=== PATIENT | female | born 1945 | race African-American/Black ===

== ENCOUNTER → 2016-08-03 08:20 | Outpatient (CLI) | payer BC ==
[2015-11-19 09:36] VITALS: BMI 24.2
[~2016-08-03 08:20] MED LIST: COZAAR25 MG PO
== END | disposition home or self-care (01) ==
LOC: D.RAD 08:20
DX: K50.90 Crohn's disease, unspecified, without complications (principal)

== ENCOUNTER → 2016-08-25 08:38 | Outpatient (CLI) | payer BC ==
[2015-11-19 09:36] VITALS: BMI 24.2
== END | disposition home or self-care (01) ==
LOC: D.CT 08-18 08:00
DX: K50.90 Crohn's disease, unspecified, without complications (principal)

== ENCOUNTER 2016-09-12 08:30 | Emergency (ER) | payer BC, MEDICARE ==
[2015-11-19 09:36] VITALS: BMI 24.2
[2016-09-12 09:18] LABS: HEMATOCRIT 44.7 % (36.0-48.0); MCH 32.7 pg (26.0-34.0); MCHC 33.6 g/dL (31.0-37.0); MCV 97.4 fL (80.0-100.0); MEAN PLATELET VOLUME 9.4 fL (7.4-10.4); PLATELET COUNT 267 10x3/uL (130-400); RBC 4.59 10x6/uL (4.00-5.40); WBC 30.3 10x3/uL (4.8-10.8)
[2016-09-12 09:51] LABS: BASOPHILS 1 % (0.0-2.0); LYMPHOCYTES 9 % (15-50); MONOCYTES 8 % (2-11); NEUTROPHILS 80 % (40-80); PLATELET ESTIMATE NORMAL
[2016-09-12 12:22] LABS: ALBUMIN 3.3 g/dL (3.4-5.0); ANION GAP 17.5 mmol/L (8-16); BILIRUBIN - TOTAL 0.64 mg/dL (0.2-1.3); CALCIUM 8.5 mg/dL (8.5-10.1); CARBON DIOXIDE 23.7 mmol/L (21.0-32.0); CREATININE - SERUM 1.1 mg/dL (0.6-1.3); POTASSIUM - SERUM 4.2 mmol/L (3.5-5.1); PROTEIN - SERUM 6.9 g/dL (6.4-8.2)
[2016-09-12 12:44] LABS: APPEARANCE CLEAR (CLEAR); COLOR YELLOW (YELLOW); LEUKOCYTE ESTERASE 1+ (NEGATIVE); NITRITE NEGATIVE (NEGATIVE); PROTEIN TRACE mg/dL (NEGATIVE)
[2016-09-12 12:45] LABS: BACTERIA FEW /hpf (NONE SEEN); BILIRUBIN NEGATIVE (NEGATIVE); EPITHELIAL CELLS 0-5 /hpf (0-5); GLUCOSE NEGATIVE (NEGATIVE); KETONE NEGATIVE (NEGATIVE); MUCUS <1+ /lpf (NONE SEEN); RED CELLS - URINE OCC /hpf (0-5); UROBILINOGEN NORMAL (NORMAL)
== END 2016-09-12 14:08 | disposition home or self-care (01) ==
LOC: D.ER 08:30
PROVIDERS: Emergency Medicine
DX: R10.9 Unspecified abdominal pain (principal); R11.10 Vomiting, unspecified; R19.7 Diarrhea, unspecified; K50.90 Crohn's disease, unspecified, without complications

== ENCOUNTER 2016-11-06 19:10 | Emergency (ER) | payer BC, MEDICARE ==
[2015-11-19 09:36] VITALS: BMI 24.2
[2016-11-06 20:16] LABS: BASOPHILS 0.3 % (0-2); EOSINOPHILS 0.4 % (0-7); HEMATOCRIT 40.4 % (36.0-48.0); HEMOGLOBIN 13.8 g/dL (12-16); IMMATURE GRANULOCYTES 0.3 % (0-5); LYMPHOCYTES 26.9 % (15-50); MCH 32.5 pg (26.0-34.0); MCHC 34.2 g/dL (31.0-37.0); MCV 95.3 fL (80.0-100.0); MONOCYTES 6.8 % (2-11); NEUTROPHILS 65.3 % (40-80); RBC 4.24 10x6/uL (4.00-5.40); RDW 12.6 % (11.5-14.5); WBC 11.5 10x3/uL (4.8-10.8)
[2016-11-06 20:17] LABS: PLATELET COUNT 339 10x3/uL (130-400)
[2016-11-06 20:29] LABS: ALBUMIN 3.3 g/dL (3.4-5.0); ANION GAP 16.1 mmol/L (8-16); BILIRUBIN - TOTAL 0.2 mg/dL (0.2-1.3); CALCIUM 9.2 mg/dL (8.5-10.1); CARBON DIOXIDE 22.5 mmol/L (21.0-32.0); CREATININE - SERUM 1.7 mg/dL (0.6-1.3); PROTEIN - SERUM 7.7 g/dL (6.4-8.2)
[2016-11-06 20:30] LABS: POTASSIUM - SERUM 2.6 mmol/L (3.5-5.1)
== END 2016-11-06 23:50 | disposition home or self-care (01) ==
LOC: D.ER 19:10
PROVIDERS: Family Medicine
DX: R10.31 Right lower quadrant pain (principal); T78.3XXA Angioneurotic edema, initial encounter; K50.90 Crohn's disease, unspecified, without complications; E87.6 Hypokalemia

== ENCOUNTER 2016-11-17 08:04 | Inpatient (IN) | payer MEDICARE, BC ==
[2016-11-16 15:08] LABS: HEMATOCRIT 40.1 % (36.0-48.0); HEMOGLOBIN 13.7 g/dL (12-16); MCH 32.2 pg (26.0-34.0); MCHC 34.2 g/dL (31.0-37.0); MCV 94.4 fL (80.0-100.0); RBC 4.25 10x6/uL (4.00-5.40); RDW 12.7 % (11.5-14.5); WBC 10.6 10x3/uL (4.8-10.8)
[2016-11-16 15:26] LABS: APTT 26.1 SECONDS (22.8-39.4); INR 1.05 (0.85-1.17); PROTIME 13.5 SECONDS (11.6-15.0)
[2016-11-16 15:36] LABS: ALBUMIN 3.4 g/dL (3.4-5.0); ANION GAP 11.5 mmol/L (8-16); BILIRUBIN - TOTAL 0.36 mg/dL (0.2-1.3); CALCIUM 9.2 mg/dL (8.5-10.1); CARBON DIOXIDE 26.4 mmol/L (21.0-32.0); CREATININE - SERUM 1.4 mg/dL (0.6-1.3); PROTEIN - SERUM 7.5 g/dL (6.4-8.2)
[2016-11-16 15:51] LABS: POTASSIUM - SERUM 2.9 mmol/L (3.5-5.1)
--- NOTE | 2016-11-16 15:54 | NUR ---
1550: PRE-OP LAB CRITICAL VALUE K+2.9 RESULT PHONED TO [facility] AT DR. BOOGIE'S OFFICE.
[~2016-11-17] VITALS: Ht 167.6 cm; Wt 70.3 kg
[2016-11-17] VITALS (12 sets, daily range): BP systolic 80–148; BP diastolic 50–76; BMI 25.2; BMI 25.0
--- NOTE | 2016-11-17 12:27 | NUR ---
PORT FINISHED, EXP LAP STARTS NOW
--- NOTE | 2016-11-17 12:34 | NUR ---
GARY GARDNER, OVI FLORES W.WALKER AT 1233
--- NOTE | 2016-11-17 16:43 | NUR ---
PT BP SLOWLY DROPING PER FREQ VS. DR BOOGIE CALLED. URINE OUTPUT APPROX. 100CC PER MACIAS. NORMAL SALINE BOLUS 1 LITER STARTED. FAMILY AT BEDSIDE AND AWARE.
--- NOTE | 2016-11-17 17:54 | NUR ---
NS BOLUS COMPLETED. BP 120/65. AROUSES EASILY. MILD COMPLAINTS OF ABD DISCOMFORT BUT DRIFTS BACK TO SLEEP WHEN DONE TALKING. MACIAS OUTPUT 200CC OUT. FAMILY AT BEDSIDE. CALL LIGHT IN REACH. WILL CONTINUE TO MONITOR FOR PAIN AND BP
[2016-11-18] VITALS (7 sets, daily range): BP systolic 127–157; BP diastolic 58–69; Ht 167.6 cm; Wt 70.3 kg
--- NOTE | 2016-11-18 03:05 | NUR ---
RESTING QUIETLY. NO DISTRESS NOTED. CL IN REACH
--- NOTE | 2016-11-18 04:17 | NUR ---
EYES CLOSED RESPIRATIONS WITH EASE AND UNLABORED.
--- NOTE | 2016-11-18 05:53 | NUR ---
NO CHANGE IN ASSESSMENT. CL IN REACH
[2016-11-18 06:34] LABS: HEMATOCRIT 29.6 % (36.0-48.0); MCH 32.3 pg (26.0-34.0); MCHC 33.8 g/dL (31.0-37.0); MCV 95.5 fL (80.0-100.0); MEAN PLATELET VOLUME 9.1 fL (7.4-10.4); PLATELET COUNT 232 10x3/uL (130-400); RDW 12.9 % (11.5-14.5); WBC 26.7 10x3/uL (4.8-10.8)
[2016-11-18 06:41] LABS: ANION GAP 14.1 mmol/L (8-16); CALCIUM 8.1 mg/dL (8.5-10.1); CARBON DIOXIDE 23.3 mmol/L (21.0-32.0); CREATININE - SERUM 1.4 mg/dL (0.6-1.3); MAGNESIUM - SERUM 1.4 mg/dL (1.8-2.4)
[2016-11-18 06:42] LABS: POTASSIUM - SERUM 4.4 mmol/L (3.5-5.1)
--- NOTE | 2016-11-18 07:20 | NUR ---
REPORT RECEIVED FROM SPARKER AND PATCHER NURSE. CALL LIGHT IN REACH.
[2016-11-18 07:22] LABS: LYMPHOCYTES 10 % (15-50); MONOCYTES 1 % (2-11); NEUTROPHILS 77 % (40-80); PLATELET ESTIMATE NORMAL
--- NOTE | 2016-11-18 08:31 | NUR ---
ASSESSMENT COMPLETED. NGT TO SUCTION. C/O PAIN OF 6. INSTRUCTED PATIENT TO USE SENIOR VICE PRESIDENT & GENERAL COUNSEL FOR PAIN CONTROL. VERBALIZED UNDERSTANDING. CALL LIGHT IN REACH. WILL CONTINUE WITH PLAN OF CARE.
--- NOTE | 2016-11-18 08:44 | OP ---
PATIENT NAME: DUNG CARVAAJL MEDICAL RECORD: [id number] :43 LOCATION:D.MS [id number] ADMISSION DATE:11/17/16 SURGEON: WOODROW BOOGIE MD DATE OF OPERATION: 11/17/2016 SURGEON: Woodrow Boogie MD PREOPERATIVE DIAGNOSES: 1. Crohn disease with stricture. 2. Stricture of ileocolonic anastomosis. 3. Peripheral IV access insufficiency. PROCEDURES PERFORMED: 1. Left subclavian PowerPort. 2. Immediate interpretation of fluoroscopy. 3. Exploratory laparotomy. 4. Resection of ileocolonic anastomosis. ANESTHESIA: General. COMPLICATIONS: None. SPECIMENS: Ileocolectomy. Case was clean contaminated. OPERATIVE COURSE: After consent was obtained, the patient was taken to the operating room and placed in the supine position on the operating table. Next, general anesthesia was given via endotracheal intubation. Thereafter, a timeout was performed to confirm the correct patient and procedure. The patient's left chest and neck were prepped and draped in typical sterile fashion. A 30 cc of local anesthetic were injected in the left chest wall. The left subclavian vein was cannulated on the first pass. Under fluoroscopy, a guidewire was advanced to the atriocaval junction. The needle was removed. Next, the skin incisions made for the port. Dissection continued to the level of the pectoralis muscle fascia using electrocautery. A pocket was created using a combination of blunt dissection and electrocautery. Next, the tunneling device was used to connect the catheter from the skin incision to the needle stick site. Under fluoroscopy, the dilator and breakaway sheath were passed over the wire. The wire and dilator were removed. With fluoroscopy, the catheter was advanced through the breakaway sheath and advanced the atriocaval junction. At this time, the breakaway sheath was removed. The port was accessed. Blood aspirated. It was then flushed with 5000 units of heparin mixed with 30 mL of saline. The catheter was secured to the chest wall using 2-0 interrupted Prolene suture. The wound was irrigated and suctioned. Subcutaneous tissue was closed with 3-0 Vicryl sutures. Skin was closed with 4-0 Stratafix, Mastisol and Steri-Strips. The port was accessed. Blood was aspirated and then the port was flushed. Sterile Tegaderm dressing was applied. At this time, the drapes were removed. The abdomen was then prepped and draped in typical sterile fashion. Previous midline abdominal scar was excised using a 15 blade scalpel. Dissection continued to the level of the fascia using electrocautery. The fascia was grasped with Ramy clamps times 2. It was opened with Metzenbaum scissors. Once there is a direct to view the abdomen, the remaining portion of the fascia was opened using electrocautery. There were minimal adhesions in the abdomen. Some adhesions were taken down in the right upper quadrant. The OPERATIVE REPORT [id number] DUNG CARVAJAL A ileocolonic anastomosis was identified. There was gross palpable Crohn's disease at the terminal portion of the small bowel at the ileocolonic anastomosis. At this time, the distal 10 cm of small bowel were resected. Mesenteric window was created using electrocautery. The mesentery was taken with the Harmonic scalpel. A mesenteric window was then created at the colon portion of the colonic anastomosis. Using a NAM stapler, the small bowel was transected. Second firing stapler was used to transect the colon at the ileocolonic anastomosis and the specimen was sent for permanent pathology. Next, a functional [id number] anastomosis was created. The antimesenteric borders of both proximal colon and terminal ileum were aligned using 3-0 Vicryl suture. Enterotomies were made using electrocautery. Single firing of the 75-mm linear NAM stapler was used to create a common enterotomy. A second firing stapler was then used to close the common enterotomy. The staple line was imbricated using a 3-0 Stratafix suture. The anastomosis was tested for patency, which was showed good patency. At this time, the abdomen was irrigated with approximately 3 liters of normal saline and suctioned. The small bowel was run from the ligament of Treitz to the ileocolonic anastomosis. Colon was run from the mid transverse colon at the anastomosis to the rectum. At this time, the fascia was closed with a #1 looped PDS. Skin was closed with michael. At the end of the case, all needle and instrument counts were correct. No complications occurred. The patient was extubated and transferred to the PACU in stable condition. TRANSINT:[id number] Voice Confirmation ID: [id number] DOCUMENT ID: [id number] WOODROW BOOGIE MD at 0844 CC: [id number] DICTATION DATE: 11/17/16 1346 MASSAGE OPERATOR: 11/17/16 2347 ADM IN [facility] [address] [id number]
--- NOTE | 2016-11-18 10:31 | NUR ---
PATIENT RESTING QUIETLY WITH HER EYES CLOSED. RESPIRATIONS ARE EVEN AND UNLABORED. FAMILY AT THE PATIENT'S BEDSIDE. TURNING MACHINE OPERATOR DILAUDID IN USE FOR PAIN CONTROL. LR INFUSING AT 100 ML/HR. LEFT INFUSAPORT PATENT WITH DRESSING C/D/I. NG TUBE NOTED TO PATIENT'S LEFT NARE. NG TUBE CONNECTED TO LIS. DARK BROWN DRAINAGE NOTED IN SUCTION CANISTER. CALL LIGHT IN PATIENT'S REACH. WILL MONITOR PATIENT.
--- NOTE | 2016-11-18 11:15 | NUR ---
MEDS ADMINISTERED PER DR. BOOGIE'S ORDERS. SCDs APPLIED TO BLE. MACIAS CATH REMOVED WITH TIP INTACT. [place] HAT PLACED IN BR FOR MEASUREMENT OF URINE. VISITOR AT BEDSIDE. CALL LIGHT IN REACH.
--- NOTE | 2016-11-18 11:31 | NUR ---
BOLUS IS COMPLETED. LR INFUSING AT THIS TIME.
--- NOTE | 2016-11-18 12:14 | NUR ---
IN CHAIR AT THIS TIME PER PHYISCAL THERAPY. NGT TO SUCTION PER ORDER.
--- NOTE | 2016-11-18 14:03 | NUR ---
BACK IN BED AT THIS TIME. STATES THAT PAIN IS "ABOUT THE SAME". ASKED PATIENT IF SHE WOULD LIKE A BOLUS AFTER EXPLAINING WHAT IT WAS BUT SHE STATES "NOT RIGHT NOW".
--- NOTE | 2016-11-18 14:06 | NUR ---
Patient Name: DUNG CARVAJAL Admission Status: Elective Accout number: [id number] Admission Date: 11-17-2016 : 1943 Admission Diagnosis: Attending: BRENDA Current LOS: 1 Anticipated DC Date: 11-23-2016 Planned Disposition: Home Primary Insurance: [employer] [facility] Discharge Planning Comments: CM MET WITH PATIENT REGARDING D/C NEEDS AND PLANS. PATIENT LIVES WITH HER FAMILY AND HER DAUGHTER WILL DRIVE HER HOME AT DISCHARGE. PATIENT STATED THERE ARE NO STEPS OR STAIRS AT HER HOME. PATIENT STATED SHE IS INDEPENDENT WITH HER CARE AND HAS A BUILT IN SHOWER AT HOME. PATIENTS PCP IS DR. STOCKTON AND PHARMACY IS [facility]. PATIENT DOES NOT WANT HOME HEALTH. CM WILL CONTINUE TO FOLLOW PATIENT WITH D/C NEEDS AND PLANS. PCP DR. MAHIN CORNEJO [facility] [phone] MABLE (DAUGHTER) [phone] Boiler Maker: Rosanne Mackey Is the patient Alert and Oriented? Yes 0 * How many steps to enter\exit or inside your home? 0 0 * PCP DR. STOCKTON 0 * Pharmacy [facility] 0 * Preadmission Environment Home with Family 0 * ADLs Independent 0 * Equipment None 0 * List name and contact numbers for known caregivers / representatives who currently or will assist patient after discharge: MABLE (DAUGHTER) [phone] 0 * Community resources currently utilized None 0 * Additional services required to return to the preadmission environment? Yes 0 * Can the patient safely return to the preadmission environment? Yes 0 * Has this patient been hospitalized within the prior 30 days at any hospital? No 0 Grand Total: 0
--- NOTE | 2016-11-18 16:07 | NUR ---
IV ABX PER ORDER. VIT A PER TUBE. DAUGHTER IN ROOM. CALL LIGHT IN REACH.
--- NOTE | 2016-11-18 18:15 | NUR ---
NO CHANGES IN INITIAL ASSESSMENT. CALL LIGHT IN REACH. SCDs TO BLE. WILL CONTINUE WITH PLAN OF CARE.
--- NOTE | 2016-11-18 19:36 | NUR ---
ASSISTED TO BSC TO SEE IF PATIENT CAN VOID. SHE WAS UNABLE BUT WANTED TO CONTINUE TO SIT ON BSC AND TRY FOR ABOUT 30 MINUTES. LEFT WATER RUNNING TO ASSIST HER. WE CHECKED ON HER FREQUENTLY WHILE SITTING ON COMMODE. SHE FINALLY STATED THAT SHE WAS TIRED OF TRYING. ASSISTED BACK TO BED WITH ASSIST X2. PAGED DR. ARREOLA FOR FURTHER ORDERS. REPORT GIVEN TO SEASONAL GREENERY BUNDLER NURSE SO SHE CAN SPEAK WITH HIM WHEN HE CALLS BACK.
--- NOTE | 2016-11-18 22:44 | NUR ---
AWAKE WIHT NO COMPLAINTS VOICED. NG TO LEFT NARE INTACT TO LOW SUCTION.. IV INFUSING TO LEFT FOREARM WITHOUT REDNESS OR EDEMA NOTED. CL IN REACH.
[2016-11-19] VITALS: BP 134/56
--- NOTE | 2016-11-19 01:04 | NUR ---
PT RESTING QUIETLY, EYES CLOSED. APPEAR TO BE SLEEPING. RESP EVEN, UNLABORED. NO DISTRESS NOTED. CONTINUE UNDERWRITING SERVICE REPRESENTATIVE'S PLAN OF CARE.
--- NOTE | 2016-11-19 01:22 | NUR ---
RESTING WITH EYES CLOSED, NO DISTRESS NOTED, SR'S UP, BED LOW, CL IN REACH
--- NOTE | 2016-11-19 03:30 | NUR ---
UNABLE TO VOID. BLADDER SCAN SHOWS [phone] CC. IN AND OUT CATH DONE WITH 800 CC YENNI URINE RETURNED. .
[2016-11-19 04:00] VITALS: BP 138/58
[2016-11-19 06:32] LABS: BASOPHILS 0.1 % (0-2); EOSINOPHILS 0 % (0-7); HEMATOCRIT 24.9 % (36.0-48.0); HEMOGLOBIN 8.3 g/dL (12-16); IMMATURE GRANULOCYTES 0.2 % (0-5); LYMPHOCYTES 8.8 % (15-50); MCH 32.4 pg (26.0-34.0); MCHC 33.3 g/dL (31.0-37.0); MCV 97.3 fL (80.0-100.0); MEAN PLATELET VOLUME 9.6 fL (7.4-10.4); MONOCYTES 7.6 % (2-11); NEUTROPHILS 83.3 % (40-80); PLATELET COUNT 200 10x3/uL (130-400); RBC 2.56 10x6/uL (4.00-5.40); RDW 13.3 % (11.5-14.5); WBC 20.5 10x3/uL (4.8-10.8)
[2016-11-19 07:29] LABS: ANION GAP 14.3 mmol/L (8-16); CALCIUM 8.4 mg/dL (8.5-10.1); CARBON DIOXIDE 22.8 mmol/L (21.0-32.0); CREATININE - SERUM 1.2 mg/dL (0.6-1.3); MAGNESIUM - SERUM 1.7 mg/dL (1.8-2.4); POTASSIUM - SERUM 4.1 mmol/L (3.5-5.1)
[2016-11-19 08:09] VITALS: BP 155/53
[2016-11-19 12:38] VITALS: BP 148/66
[2016-11-19 15:32] VITALS: BP 150/63
--- NOTE | 2016-11-19 18:45 | NUR ---
PT SITTING UP IN BED WITH NO VISABLE SIGNS OF PAIN OR DISCOMFORT. BED IN LOW POSITION AND CALL LIGHT WITHIN REACH. WILL CONTINUE TO MONITOR.
[2016-11-20] VITALS: BP 140/58
[2016-11-20 04:00] VITALS: BP 130/50
[2016-11-20 06:53] LABS: ANION GAP 11.6 mmol/L (8-16); CALCIUM 8.2 mg/dL (8.5-10.1); CARBON DIOXIDE 26.7 mmol/L (21.0-32.0); CREATININE - SERUM 1.4 mg/dL (0.6-1.3); MAGNESIUM - SERUM 1.6 mg/dL (1.8-2.4)
[2016-11-20 06:54] LABS: POTASSIUM - SERUM 3.3 mmol/L (3.5-5.1)
[2016-11-20 07:06] LABS: BASOPHILS 0.1 % (0-2); EOSINOPHILS 0.1 % (0-7); HEMATOCRIT 20.7 % (36.0-48.0); IMMATURE GRANULOCYTES 0.3 % (0-5); LYMPHOCYTES 7.4 % (15-50); MCH 33.2 pg (26.0-34.0); MCHC 34.3 g/dL (31.0-37.0); MCV 96.7 fL (80.0-100.0); MEAN PLATELET VOLUME 9.1 fL (7.4-10.4); MONOCYTES 4.8 % (2-11); NEUTROPHILS 87.3 % (40-80); PLATELET COUNT 178 10x3/uL (130-400); RBC 2.14 10x6/uL (4.00-5.40); RDW 13.2 % (11.5-14.5)
[2016-11-20 07:07] LABS: WBC 14.9 10x3/uL (4.8-10.8)
[2016-11-20 07:15] LABS: HEMOGLOBIN 7.1 g/dL (12-16)
--- NOTE | 2016-11-20 08:50 | NUR ---
PATIENT ALERT IN BED EATING BREAKFAST. NO SIGNS OF DISTRESS NOTED. FAMILY AT BEDSIDE. SIDE RAILS UP X2. BED IN LOW POSITION. CALL LIGHT IN REACH.
[2016-11-20 09:01] VITALS: BP 148/62
--- NOTE | 2016-11-20 11:30 | NUR ---
LAB CALLED [facility] READY, PT WALKING IN HOPPER, GETTING READY TO START FIRST UNIT OF BLOOD NOW
--- NOTE | 2016-11-20 19:03 | NUR ---
RUNNING A 102 TEMP, SLIGHTLY ANXIOUS BP TRENDING UP
[2016-11-20 20:00] VITALS: BP 163/74
[2016-11-20 23:30] VITALS: BP 123/56
[2016-11-20 23:45] VITALS: BP 123/56
[2016-11-21] VITALS (11 sets, daily range): BP systolic 123–172; BP diastolic 53–85
--- NOTE | 2016-11-21 03:20 | NUR ---
ASSESSED AT THE BEGINNING OF THE SHIFT. PT IS ALERT AND ORIENTED, ABLE TO VERBALIZE NEEDS. SHE IS POST OP FROM A EXPLORATORY LAP AND HAS A CLEAN INCISISON MID LINE HER ABD. THERE IS NO DRESSING TO HER INCISION. SHE WAS RUNNING A TEMP EARILER AND RECEIVED TYLENOL. SHE ALSO RECEIVED HER THIRD UNIT OF BLOOD WITH NO PROBLEM. WE ARE ASSISTING HER UP TO THE BED SIDE COMMODE FOR FOR VOIDING AND SHE IS TURNING HERSELF IN THE BED. SHE HAS A DILAUDID DYE LAB TECHNICIAN FOR PAIN AND IT SEEMS TO BE KEEPING HER COMFORTABLE. THE BED IS LOW, RAILS UP X'S 2 WITH THE CALL LIGHT AT HAND.
[2016-11-21 06:57] LABS: BASOPHILS 0.1 % (0-2); EOSINOPHILS 0.5 % (0-7); IMMATURE GRANULOCYTES 0.5 % (0-5); LYMPHOCYTES 9.8 % (15-50); MCH 31.4 pg (26.0-34.0); MCHC 34.4 g/dL (31.0-37.0); MEAN PLATELET VOLUME 9.3 fL (7.4-10.4); MONOCYTES 7.6 % (2-11); NEUTROPHILS 81.5 % (40-80); PLATELET COUNT 173 10x3/uL (130-400); RDW 14.5 % (11.5-14.5)
[2016-11-21 06:59] LABS: HEMATOCRIT 32.3 % (36.0-48.0); HEMOGLOBIN 11.1 g/dL (12-16); MCV 91.5 fL (80.0-100.0); RBC 3.53 10x6/uL (4.00-5.40); WBC 10.8 10x3/uL (4.8-10.8)
[2016-11-21 07:17] LABS: ANION GAP 9.8 mmol/L (8-16); CALCIUM 8.1 mg/dL (8.5-10.1); CARBON DIOXIDE 30.1 mmol/L (21.0-32.0); CREATININE - SERUM 1.4 mg/dL (0.6-1.3); MAGNESIUM - SERUM 1.8 mg/dL (1.8-2.4)
[2016-11-21 07:20] LABS: POTASSIUM - SERUM 2.9 mmol/L (3.5-5.1)
--- NOTE | 2016-11-21 09:17 | NUR ---
SCHEDULED MEDICATIONS ADMINISTERED AT THIS TIME AND ELECTROLYTE PROTOCOL INITIATED FOR POTASSIUM OF 2.9. FAMILY AT BEDSIDE. ASSESSMENT PERFORMED AND OXYGEN ON 2L VIA NC. SCD'S OFF PER PT. INCISION TO MIDLINE ABDOMEN WITHOUT REDNESS AND MARCIANO INTACT. DENIES FURTHER NEEDS AT THIS TIME. FRONT ATTENDANT IN USE FOR PAIN. WILL CONTINUE WITH PLAN OF CARE. CALL LIGHT IN REACH. PT AMBULATES WITH ASSISTANCE.
--- NOTE | 2016-11-21 11:44 | NUR ---
SCHEDULED MEDICATIONS ADMINISTERED AT THIS TIME WITHOUT DIFFICULTY. DENIES NEEDS AT THIS TIME. WILL CONTINUE WITH PLAN OF CARE.
--- NOTE | 2016-11-21 13:17 | NUR ---
SCHEDULED MEDICATIONS ADMINISTERED AT THIS TIME WITHOUT DIFFICULTY. CONTOUR SANDER IN USE FOR PAIN. CALL LIGHT IN REACH, WILL CONTINUE WITH PLAN OF CARE.
--- NOTE | 2016-11-21 14:29 | NUR ---
SCHEDULED MEDICATIONS ADMINISTERED AT THIS TIME. CALL LIGHT IN REACH, WILL CONTINUE WITH PLAN OF CARE. NO NEW ASSESSMENT FINDINGS.
[2016-11-22] VITALS: BP 146/74
[2016-11-22 04:00] VITALS: BP 165/81
[2016-11-22 06:23] LABS: BASOPHILS 0.1 % (0-2); EOSINOPHILS 1.6 % (0-7); HEMATOCRIT 32.7 % (36.0-48.0); IMMATURE GRANULOCYTES 0.6 % (0-5); LYMPHOCYTES 8.3 % (15-50); MCH 31.3 pg (26.0-34.0); MCHC 33.6 g/dL (31.0-37.0); MCV 92.9 fL (80.0-100.0); MEAN PLATELET VOLUME 9.2 fL (7.4-10.4); MONOCYTES 8.4 % (2-11); PLATELET COUNT 169 10x3/uL (130-400); RBC 3.52 10x6/uL (4.00-5.40); RDW 14.5 % (11.5-14.5); WBC 8.5 10x3/uL (4.8-10.8)
[2016-11-22 06:42] LABS: ANION GAP 10.7 mmol/L (8-16); CARBON DIOXIDE 28.9 mmol/L (21.0-32.0); CREATININE - SERUM 1.1 mg/dL (0.6-1.3); MAGNESIUM - SERUM 1.7 mg/dL (1.8-2.4)
[2016-11-22 06:49] LABS: POTASSIUM - SERUM 3.6 mmol/L (3.5-5.1)
--- NOTE | 2016-11-22 07:25 | NUR ---
ASSESSMENT PER FLOW SHEET.PT WITHOUT DISTRESS.CALL LIGHT IN REACH.DENIES NEEDS
[2016-11-22 08:33] VITALS: BP 170/83
--- NOTE | 2016-11-22 12:30 | NUR ---
UP TO BSC,LOOSE STOOLS AGAIN.C/O GAS PAIN.
[2016-11-22 12:41] VITALS: BP 158/77
--- NOTE | 2016-11-22 12:50 | NUR ---
NUTRITION MONITORING & EVAL CHART REVIEWED, PT VISIT. TOLERATING REG DIET AT LUNCH, REPORTS GOOD PO INTAKE. RD FOLLOWING
[2016-11-22 16:15] VITALS: BP 155/77
--- NOTE | 2016-11-22 17:06 | NUR ---
REMAINS WITHOUT NEEDS.STILL HAS SOME GAS PAIN.DECLINES PAIN MEDS.WITHOUT CHNAGE FROM INITIAL SHIFT ASSESSMENT.CONT PLAN OF CARE
[2016-11-22] MEDS ORDERED: HYDROCODON-ACE1 EAC7 PO (18:21)
[2016-11-23 04:00] VITALS: BP 128/72
[2016-11-23 04:38] LABS: BASOPHILS 0.1 % (0-2); EOSINOPHILS 2.7 % (0-7); HEMATOCRIT 33.9 % (36.0-48.0); HEMOGLOBIN 11.4 g/dL (12-16); IMMATURE GRANULOCYTES 0.6 % (0-5); LYMPHOCYTES 15.5 % (15-50); MCH 31.5 pg (26.0-34.0); MCHC 33.6 g/dL (31.0-37.0); MCV 93.6 fL (80.0-100.0); MEAN PLATELET VOLUME 9.2 fL (7.4-10.4); MONOCYTES 8.9 % (2-11); NEUTROPHILS 72.2 % (40-80); PLATELET COUNT 183 10x3/uL (130-400); RBC 3.62 10x6/uL (4.00-5.40); RDW 14.1 % (11.5-14.5); WBC 9.9 10x3/uL (4.8-10.8)
[2016-11-23 04:47] LABS: ANION GAP 11.7 mmol/L (8-16); CALCIUM 8.3 mg/dL (8.5-10.1); CARBON DIOXIDE 29.4 mmol/L (21.0-32.0); CREATININE - SERUM 1.2 mg/dL (0.6-1.3); MAGNESIUM - SERUM 2.1 mg/dL (1.8-2.4); POTASSIUM - SERUM 3.1 mmol/L (3.5-5.1)
--- NOTE | 2016-11-23 07:55 | NUR ---
PT AOX4 RESP EVEN AND NONLABORED PT DENIES NEEDS AT THIS TIME IV TO LEFT INFUSIPORT PATENT AND INTACT SRX2 BED AT LOWEST SETTINGS CALL LIGHT WITHIN REACH WILL CONTINUE TO MONITOR
[2016-11-23 08:49] VITALS: BP 151/78
--- NOTE | 2016-11-23 09:09 | NUR ---
CM REASSESSMENT NOTE: PATIENT IS DISCHARGING HOME TODAY-DAUGHTER IS DRIVING HER. PATIENT DENIED ANY NEEDS OR HOME HEALTH FOR DISCHARGE.
--- NOTE | 2016-11-23 12:25 | NUR ---
PT IV DISCONTINUE FROM INFUSIPORT WITHOUT DIFFICULTY AT THIS TIME PT DENIES NEEDS AT THIS TIME PT GIVEN DISCHARGE INSTRUCTIONS AND ONE PAPER PRESCRIPTION AT THIS TIME. PT TAKEN VIA WHEELCHAIR VIA PRIVATE VEHICLE AT THIS TIME
[2016-11-23] MEDS ORDERED: KLOR-CON M2020 MEQ PO (12:53)
== END 2016-11-23 12:36 | disposition home or self-care (01) | DRG 330 ==
LOC: D.SDCHOLD 08:04 → D.MS 08:04 → D.SDCHOLD 10:30 → D.MS 14:26
PROVIDERS: Anesthesiology; ADMIT Surgery
PROC: 0DTH0ZZ Resection of Cecum, Open Approach (ICD-10-PCS; principal; 2016-11-17 10:30)
DX: K50.912 Crohn's disease, unspecified, with intestinal obstruction (principal); D62 Acute posthemorrhagic anemia; N18.9 Chronic kidney disease, unspecified

== ENCOUNTER 2016-11-28 09:12 | Inpatient (IN) | payer MEDICARE, BC ==
[~2016-11-28] VITALS: Ht 167.6 cm; Wt 56.7 kg
[~2016-11-28 09:12] MED LIST changes: +HYDROCODON-ACE1 EAC7 PO; +KLOR-CON M2020 MEQ PO
[2016-11-28 10:28] LABS: HEMATOCRIT 37.8 % (36.0-48.0); HEMOGLOBIN 12.7 g/dL (12-16); MCH 30.9 pg (26.0-34.0); MCHC 33.6 g/dL (31.0-37.0); MEAN PLATELET VOLUME 9.3 fL (7.4-10.4); PLATELET COUNT 326 10x3/uL (130-400); RBC 4.11 10x6/uL (4.00-5.40); RDW 13.1 % (11.5-14.5); WBC 27.8 10x3/uL (4.8-10.8)
[2016-11-28 10:46] LABS: LYMPHOCYTES 3 % (15-50); MONOCYTES 1 % (2-11); NEUTROPHILS 91 % (40-80); PLATELET ESTIMATE NORMAL
[2016-11-28 10:54] LABS: ANION GAP 21.8 mmol/L (8-16); CALCIUM 8.4 mg/dL (8.5-10.1); CARBON DIOXIDE 17.8 mmol/L (21.0-32.0); CREATININE - SERUM 1.1 mg/dL (0.6-1.3)
[2016-11-28 10:59] LABS: POTASSIUM - SERUM 4.6 mmol/L (3.5-5.1)
[2016-11-28 11:00] LABS: APPEARANCE CLEAR (CLEAR); BACTERIA MODERATE /hpf (NONE SEEN); BILIRUBIN 2+ (NEGATIVE); COLOR AMBER (YELLOW); EPITHELIAL CELLS 0-5 /hpf (0-5); GLUCOSE NEGATIVE (NEGATIVE); KETONE SMALL mg/dL (NEGATIVE); LEUKOCYTE ESTERASE TRACE (NEGATIVE); NITRITE NEGATIVE (NEGATIVE); PROTEIN TRACE mg/dL (NEGATIVE); RED CELLS - URINE 0-5 /hpf (0-5); WHITE CELLS - URINE 0-5 /hpf (0-5)
[2016-11-28 11:01] LABS: GRANULAR CAST 0-5 /lpf (NONE SEEN); MUCUS <1+ /lpf (NONE SEEN)
[2016-11-28 14:54] VITALS: BP 131/68; BMI 20.2
--- NOTE | 2016-11-28 15:41 | NUR ---
MULTIPLE PHLEBOTOMISTS TRIED TO GET BLOOD DRAWS. VERY HARD STICK. THEY WERE UNABLE TO GET LACTIC ACID, WE OBTAINED LACTIC ACID FROM AN ABG. NEW LAB ORDERS PUT IN, UNABLE TO OBTAIN. PATIENT HAS A PORT BUT IT DOES NOT DRAW BLOOD. SPOKE WITH . HE SAID "GET A PICC LINE PLACED TOMORROW."
[2016-11-28 17:30] VITALS: BP 118/62
--- NOTE | 2016-11-28 19:45 | NUR ---
RECIEVED SHIFT REPORT. PT IS LYING IN BED. ALERT AND ORIENTED AND ABLE TO VERBALIZE NEEDS. IV IS PATENT AND FLUIDS ARE RUNNING PER ORDER. PT IS AMBULATORY WITH ASSISTANCE. PT DENIES ANY PAIN AT THIS TIME. DRESSING TO ABDOMEN C/D/I AND MARCIANO NOTED C/D/I. NO NEEDS ARE VERBALIZED AT THIS TIME. WILL CONTINUE TO MONITOR. SIDE RAILS ARE UP X 2. BED IS IN LOWEST POSITION. YESICA MAT IS ON FOR SAFETY. CALL LIGHT IS WITHIN REACH.
[2016-11-28 20:00] VITALS: BP 114/51
--- NOTE | 2016-11-28 21:25 | NUR ---
SHIFT ASSESSMENT COMPLETED. PT STATUS REMAINS UNCHANGED FROM PREVIOUS. NO NEEDS ARE VOICED. WILL MONITOR. SIDE RAILS X 2. BED LOW. YESICA MAT ON. CALL LIGHT IN REACH.
--- NOTE | 2016-11-28 22:48 | NUR ---
PT HAS TEMPERATURE OF 101.2. CALL PLACED TO DR. GEORGE ARAGON GENERAL HOUSE WORKER.
[2016-11-29] VITALS: BP 107/48
[2016-11-29 04:00] VITALS: BP 109/56
[2016-11-29 05:45] LABS: ALBUMIN 1.8 g/dL (3.4-5.0); ANION GAP 14.5 mmol/L (8-16); BILIRUBIN - TOTAL 2.08 mg/dL (0.2-1.3); CALCIUM 8.1 mg/dL (8.5-10.1); MAGNESIUM - SERUM 1.8 mg/dL (1.8-2.4); PRE-ALBUMIN 7.9 mg/dL (18.0-35.7); PROTEIN - SERUM 5.2 g/dL (6.4-8.2)
[2016-11-29 05:46] LABS: CARBON DIOXIDE 23.5 mmol/L (21.0-32.0); CREATININE - SERUM 1.5 mg/dL (0.6-1.3)
[2016-11-29 07:10] VITALS: BP 133/68
--- NOTE | 2016-11-29 07:47 | NUR ---
SPOKE WITH DR. BOOGIE. NEW ORDERS REC'D.
--- NOTE | 2016-11-29 09:10 | NUR ---
DR. BOOGIE AT BEDSIDE. MIDLINE ABD WOUND MARCIANO REMOVED AND PACKED WITH 4X4'S PER DR. BOOGIE. PURULENT AND BLOODY DRAINAGE FLOWING FREELY ONCE OPENED. NEW ORDERS REC'D. WOUND CULTURED PER DR. BOOGIE. PT GRIMACING AND CRYING. DAUGHTER AT BEDSIDE REQUESTING SOMETHING TO HELP HER RELAX. NEW ORDER REC'D. 2ND BOLUS STARTED. DILAUDID LACE STRIPPER BUTTON PUSHED FOR PT. BED LOW, CALL LIGHT IN REACH, DENEIS NEEDS. CPOC.
[2016-11-29 09:51] LABS: BASOPHILS 0.1 % (0-2); EOSINOPHILS 0.4 % (0-7); HEMATOCRIT 33.7 % (36.0-48.0); IMMATURE GRANULOCYTES 0.7 % (0-5); MCH 31.2 pg (26.0-34.0); MCHC 32.6 g/dL (31.0-37.0); MCV 95.5 fL (80.0-100.0); MEAN PLATELET VOLUME 9.6 fL (7.4-10.4); MONOCYTES 7.3 % (2-11); NEUTROPHILS 84.5 % (40-80); PLATELET COUNT 355 10x3/uL (130-400); RBC 3.53 10x6/uL (4.00-5.40); RDW 13.7 % (11.5-14.5); WBC 19.4 10x3/uL (4.8-10.8)
--- NOTE | 2016-11-29 11:10 | NUR ---
FIFI LEESATHLETIC AGENT NURSE, AT BEDSIDE PLACING WOUND VAC.
--- NOTE | 2016-11-29 11:10 | NUR ---
WOUND VAC DRESSING PLACEMENT WOUND TYPE: SURGICAL WOUND LOCATION: MIDLINE ABDOMEN WOUND AGE IN MONTHS: WEEKS DEBRIDEMENT ATTEMPTED IN LAST 10 DAYS? DATE/TYPE: SERIAL DEBRIDEMENTS REQUIRED? MEASUREMENT DATE: 11/29/16 15CM X 4CM X 2.9CM FULL THICKNESS? YES MUSCLE, TENDON OR BONE EXPOSED? NO UNDERMINING? NO TUNNELING/SINUS? NO APPEARANCE OF WOUND BED : RED WITH SOME SLOAN EXUDATE (AMOUNT, COLOR, ODOR): SMALL BLOODY NO ODOR FOAM TYPE: BLACK # OF PIECES USED: 1 PIECE EDUCATION: PURPOSE OF WOUND VAC/HOW IT WORKS TO HELP HEAL INCISIONS PT VOICED UNDERSTANDING. WOUND CARE WILL CONTINUE TO MONITOR. SETTINGS: -125MMHG LOW CONTINUOUS
[2016-11-29 12:04] VITALS: BP 112/64
[2016-11-29 15:54] VITALS: BP 111/65
[2016-11-29 16:08] VITALS: Ht 167.6 cm; Wt 56.7 kg
--- NOTE | 2016-11-29 18:41 | NUR ---
PT SEEN FOR HOOP RIVETER NOTE. NO COMPLAINTS AT PRESENT. STATES HEATER ROOM HELPER HELPS WITH PAIN CONTROL. WOUND VAC NOTED TO ABDOMEN AND TO 125 SUCTION. FAMILY AT BEDSIDE. CALL LIGHT IN REACH. YESICA ALARM ON AND ACTIVATED
--- NOTE | 2016-11-29 18:54 | NUR ---
PT RESTING IN BED WITH FAMILY FRIEND AT BEDSIDE. COMPLAINING OF GAS PAIN, BUT STATES THAT GETTING UP DOES HELP. I&O'S OBTAINED. BED LOW, CALL LIGHT IN REACH, DENIES NEEDS. CPOC.
--- NOTE | 2016-11-29 19:40 | NUR ---
RECIEVED SHIFT REPORT. PT IS LYING IN BED. ALERT AND ORIENTED AND ABLE TO VERBALIZE NEEDS. IV IS PATENT AND FLUIDS ARE RUNNING PER ORDER. PT IS AMBULATORY WITH ASSISTANCE. DRESSING TO ABDOMEN C/D/I. WOUND VAC IN PLACE. PT STATES PAIN IS 3/10 WITH SENIOR ENVIRONMENTAL TECHNICIAN PUMP. NO NEEDS ARE VERBALIZED AT THIS TIME. WILL CONTINUE TO MONITOR. SIDE RAILS ARE UP X 2. BED IS IN LOWEST POSITION. YESICA MAT IS ON FOR SAFETY. CALL LIGHT IS WITHIN REACH.
--- NOTE | 2016-11-29 20:22 | NUR ---
SHIFT ASSESSMENT COMPLETED. NIGHT MEDS GIVEN WITH NO PROBLEMS. NO NEEDS ARE VOICED. WILL MONITOR. SIDE RAILS X 2. BED LOW. YESICA ON. CALL LIGHT IN REACH.
[2016-11-30 06:59] LABS: ANION GAP 12.6 mmol/L (8-16); BASOPHILS 0.1 % (0-2); CALCIUM 7.9 mg/dL (8.5-10.1); CARBON DIOXIDE 22.1 mmol/L (21.0-32.0); CREATININE - SERUM 1.3 mg/dL (0.6-1.3); EOSINOPHILS 0.6 % (0-7); HEMATOCRIT 31.3 % (36.0-48.0); HEMOGLOBIN 10.3 g/dL (12-16); IMMATURE GRANULOCYTES 0.8 % (0-5); LYMPHOCYTES 6.4 % (15-50); MAGNESIUM - SERUM 1.6 mg/dL (1.8-2.4); MCH 30.7 pg (26.0-34.0); MCHC 32.9 g/dL (31.0-37.0); MEAN PLATELET VOLUME 9.4 fL (7.4-10.4); MONOCYTES 6.4 % (2-11); NEUTROPHILS 85.7 % (40-80); PLATELET COUNT 376 10x3/uL (130-400); POTASSIUM - SERUM 3.7 mmol/L (3.5-5.1); RBC 3.36 10x6/uL (4.00-5.40); RDW 13.8 % (11.5-14.5)
[2016-11-30 07:00] LABS: MCV 93.2 fL (80.0-100.0); WBC 13.4 10x3/uL (4.8-10.8)
--- NOTE | 2016-11-30 07:00 | NUR ---
PT REC'D FROM [facility]. RESTING IN BED WATCHING TV. AAOX4. BOWEL SOUNDS HYPOACTIVE TO RLQ, ABSENT TO RUQ, AND ACTIVE TO L QUADRANTS. WOUND VAC TO ABD WOUND PULLING PURULENT/BLOODY DRAINAGE. NO COMPLAINTS OF PAIN. L CHEST PORT PATENT WITH DRESSING CDI. BED LOW, CALL LIGHT IN REACH, DENIES NEEDS. CPOC.
[2016-11-30 08:21] VITALS: BP 110/52
--- NOTE | 2016-11-30 10:04 | HP ---
PATIENT: DUNG CARVAJAL MEDICAL RECORD: [id number] ACCOUNT: [id number] LOCATION:D.MS [facility]0 : 43 ADMISSION DATE: 11/28/16 HISTORY AND PHYSICAL EXAMINATION CHIEF COMPLAINT: Pain. HISTORY OF PRESENT ILLNESS: The patient recently underwent a bowel resection. She has Crohn disease. The bowel resection was for stricture. The bowel resection was performed by Dr. Boogie. Palpation aggravates. Nothing alleviates. Her appetite has been poor. She has had a near syncopal episode. Symptoms are severe. She has not been feeling very well. Her symptoms have been worsening since surgery. I personally reviewed the CT images. I personally reviewed the CT report. REVIEW OF SYSTEMS: Negative for chills, no fatigue, no fever, no recent upper respiratory infection, no chest pain, no dyspnea, no cough, no hemoptysis, no congestion. Positive for nausea. No vomiting. No seizures. PAST MEDICAL AND SURGICAL HISTORY: Crohn disease, hypokalemia and diarrhea. SOCIAL HISTORY: The patient is retired. Denies illicit drug use. Does not drink, does not smoke. HOME MEDICINES: Asacol, losartan, BuSpar. ALLERGIES: PHENERGAN. PHYSICAL EXAMINATION: GENERAL: She does appear acutely ill. Does not appear chronically ill. VITAL SIGNS: Reviewed. HEAD: External ears appear normal. EYES: Extraocular movements are intact. NECK: Trachea is midline. CHEST: No intercostal retractions. PULMONARY: Nonlabored, no stridor. ABDOMEN: Nontender except in the midline where there is purulent drainage. EXTREMITIES: No peripheral cyanosis. INTEGUMENT: No rash, no ulcerations. PSYCHIATRIC: Normal affect. NEUROLOGIC: Nonfocal, no lethargy. The patient answers questions appropriately. Moves all extremities well. BACK: No thoracic kyphosis. LYMPHATICS: No lymphangitic streaking of the exposed extremities. IMPRESSION: Postoperative wound infection, possible fistula. Dr. Boogie returns tomorrow. TRANSINT:[id number] Voice Confirmation ID: [id number] DOCUMENT ID: [id number] HISTORY AND PHYSICAL [id number] DUNG CARVAJAL BILLY VAZQUEZ MD at 1004 CC: WOODROW BOOGIE MD [id number] DICTATION DATE: 11/28/16 1404 MEDICAL CLERICAL ASSISTANT: 11/28/16 1449 ADM IN [facility] [address] [id number]
--- NOTE | 2016-11-30 10:15 | NUR ---
MORNING MEDS PASSED AT THIS TIME. ASSISTED PT TO BATHROOM. ABLE TO AMBULATE WITHOUT DIFFICULTY. PRN MAG ADMINISTERED PO DUE TO 1.6 MAG LEVEL. BED LOW, CALL LIGHT IN REACH, DENIES NEEDS. CPOC.
--- NOTE | 2016-11-30 11:11 | NUR ---
Patient Name: DUNG CARVAJAL Admission Status: ER Accout number: [id number] Admission Date: 11-28-2016 : 1945 Admission Diagnosis: Attending: BRENDA Current LOS: 2 Anticipated DC Date: 12-03-2016 Planned Disposition: Home with Home Health Primary Insurance: MEDICARE PART A ONLY Discharge Planning Comments: CM MET WITH PATIENT REGARDING D/C NEEDS AND PLANS. PATIENT STATED SHE LIVES WITH HER SPOUSE (QAMAR) AND THEY HAVE NO STEPS OR STAIRS AT THEIR HOME. PATIENTS DAUGHTER (MABLE) WILL DRIVE HER HOME WHEN DISCHARGED. PATIENT IS INDEPENDENT WITH HER CARE AND HAS NO DME AT HOME. PATIENTS PCP IS DR. STOCKTON AT [facility] AND USES [facility] FOR HER PHARMACY. PATIENT CHOSE [facility] WHEN DISCHARGED AND MICHELLE FORM WAS SIGNED. CM WILL CONTINUE TO FOLLOW PATIENT WITH D/C NEEDS AND PLANS. PCP DR. MAHIN CORNEJO [facility] [phone] MABLE (DAUGHTER) [phone] Inspector Rubber Stamp Die: Rosanne Mackey Is the patient Alert and Oriented? Yes 0 * How many steps to enter\exit or inside your home? 0 0 * PCP DR. STOCKTON AT [facility] 0 * Pharmacy [facility] 0 * Preadmission Environment Home with Family 0 * ADLs Independent 0 * Equipment None 0 * List name and contact numbers for known caregivers / representatives who currently or will assist patient after discharge: MABLE (DAUGHTER) [phone] 0 * Community resources currently utilized None 0 * Additional services required to return to the preadmission environment? Yes 0 * Can the patient safely return to the preadmission environment? Yes 0 * Has this patient been hospitalized within the prior 30 days at any hospital? Yes 0 Grand Total: 0
--- NOTE | 2016-11-30 11:27 | NUR ---
RACK WASHER NOTE-PT HAS NO COMPLAINTS AT PRESENT. BOWEL SOUNDS PRESENT AND PATIENT STATES THAT SHE HAS PASSED GAS AND HAD A BOWEL MOVEMENT. WOUND VAC NOTED TO ABDOMEN-PT STATES NO N/V AND HAS GOOD PAIN CONTROL.CALL LIGHT IN REACH
[2016-11-30 13:01] VITALS: BP 110/63
[2016-11-30 16:10] VITALS: BP 149/66
--- NOTE | 2016-11-30 19:45 | NUR ---
RECIEVED SHIFT REPORT. PT IS LYING IN BED. ALERT AND ORIENTED AND ABLE TO VERBALIZE NEEDS. IV IS PATENT AND FLUIDS ARE RUNNING PER ORDER. PT IS AMBULATORY WITH ASSISTANCE. PT STATES PAIN IS 2/10 WITH ATOMIZER ASSEMBLER PUMP. WOUND VAC AND DRESSING C/D/I. NO NEEDS ARE VERBALIZED AT THIS TIME. WILL CONTINUE TO MONITOR. SIDE RAILS ARE UP X 2. BED IS IN LOWEST POSITION. POSET MAT IS ON FOR SAFETY. CALL LIGHT IS WITHIN REACH.
[2016-11-30 20:00] VITALS: BP 104/54
--- NOTE | 2016-11-30 20:24 | NUR ---
SHIFT ASSESSMENT COMPLETED. NIGHT MEDS GIVEN WITH NO PROBLEMS. PT REFUSED MILK OF MAGNESIA AT THIS TIME. NO NEEDS ARE VOICED. WILL MONITOR. SIDE RAILS X 2. BED LOW. YESICA ON. CALL LIGHT IN REACH.
[2016-12-01] VITALS: BP 110/60
[2016-12-01 04:00] VITALS: BP 102/52
[2016-12-01 06:34] LABS: BASOPHILS 0.2 % (0-2); HEMATOCRIT 34.6 % (36.0-48.0); HEMOGLOBIN 11.2 g/dL (12-16); IMMATURE GRANULOCYTES 1.7 % (0-5); LYMPHOCYTES 8.1 % (15-50); MCH 30.8 pg (26.0-34.0); MCHC 32.4 g/dL (31.0-37.0); MCV 95.1 fL (80.0-100.0); MEAN PLATELET VOLUME 9.2 fL (7.4-10.4); MONOCYTES 6.2 % (2-11); NEUTROPHILS 82.8 % (40-80); PLATELET COUNT 412 10x3/uL (130-400); RBC 3.64 10x6/uL (4.00-5.40); RDW 14.2 % (11.5-14.5); WBC 16.2 10x3/uL (4.8-10.8)
[2016-12-01 07:04] LABS: ANION GAP 11.7 mmol/L (8-16); CALCIUM 8.6 mg/dL (8.5-10.1); CARBON DIOXIDE 22.9 mmol/L (21.0-32.0); CREATININE - SERUM 1.3 mg/dL (0.6-1.3); POTASSIUM - SERUM 3.6 mmol/L (3.5-5.1)
[2016-12-01 07:07] LABS: MAGNESIUM - SERUM 2.3 mg/dL (1.8-2.4)
[2016-12-01 10:05] VITALS: BP 132/72
[2016-12-01 11:36] VITALS: BP 139/60
--- NOTE | 2016-12-01 11:47 | NUR ---
DRESSING TO L CHEST PORT CHANGED PER PROTOCOL. C-DIFF SAMPLE OBTAINED AND SENT TO LAB ALSO. VSS. BED LOW, CALL LIGHT IN REACH, DENIES NEEDS. CPOC.
[2016-12-01 14:23] LABS: ALP - ISO (ALP) 98 IU/L (39-117); ALP - ISO (BONE) FRACTION 46 % (14-68); ALP - ISO (LIVER) FRACTION 54 % (18-85); ALP - ISO(INTESTINAL) FRACTION 0 % (0-18)
--- NOTE | 2016-12-01 14:29 | NUR ---
WOUND VAC DRESSING CHANGE WOUND TYPE: surgical WOUND LOCATION: midline abd WOUND AGE IN MONTHS: week DEBRIDEMENT ATTEMPTED IN LAST 10 DAYS? DATE/TYPE: SERIAL DEBRIDEMENTS REQUIRED? MEASUREMENT DATE: 12/01/16 13.5cm x 3.5cm x 2.2cm (improved) FULL THICKNESS? yes MUSCLE, TENDON OR BONE EXPOSED? no UNDERMINING? no TUNNELING/SINUS? no APPEARANCE OF WOUND BED : red beefy with small amount of hooper tissue at bottom EXUDATE (AMOUNT, COLOR, ODOR): small serosanguinous no odor FOAM TYPE: black # OF PIECES USED: 1 piece EDUCATION: Wound healing with wound vac. Pt voiced understanding -125mmhg mod continuous Pt tolerated well. Wound care will continue to monitor.
--- NOTE | 2016-12-01 14:48 | NUR ---
SPOKE WITH JUDY MATHEWS RN, REGARDING DRAIN PLACEMENT FOR PT. NEW ORDERS REC'D.
--- NOTE | 2016-12-01 15:17 | NUR ---
PT UP AMBULATING WITH PHYSICAL THERAPY. ABLE TO MAKE ONE LAP AROUND NURSES STATION WITH MINIMAL ASSISTANCE ONLY TO HOLD LINES AND WOUND VAC.
[2016-12-01 16:03] VITALS: BP 130/59
[2016-12-01 19:00] VITALS: BP 129/60
--- NOTE | 2016-12-01 20:00 | NUR ---
PT RESTING IN BED WITH EYES OPEN. ALERT AND ORIENTED X 3. DENIES ACUTE DISCOMFORT AT THIS TIME. WOUND VAC TO ABD IS ON AND INTACT. LEFT CHEST PORT NOTED. FLUIDS INFUSING DIRECTED. [facility] CONSULT[facility] IN USE FOR PAIN CONTROL. PTS DAUGHTER MABLE CALLED FOR PROCEDURE TIME IN AM. I CALLED RADIOLOGY, AND THEY INFORMED ME THE PROCEDURE DOES NOT HAVE A SCHEDULED TIME. DAUGHTER NOTIFIED OF THIS. SR'S ARE UP X 3 IN BED. CALL LIGHT AND BEDSIDE TABLE ARE WITHIN EASY REACH.
--- NOTE | 2016-12-01 21:33 | NUR ---
PT IS RESTING QUIETLY IN BED WITH EYES CLOSED. RESPS ARE EVEN AND UNLABORED. NO ACUTE DISTRESS NOTED.
--- NOTE | 2016-12-01 22:58 | NUR ---
PT ASSISTED TO THE BATHROOM WITH MIN ASSIST. MEDIUM FORMED BM NOTED.
[2016-12-02] VITALS (11 sets, daily range): BP systolic 127–147; BP diastolic 63–94
--- NOTE | 2016-12-02 00:39 | NUR ---
PT IS RESTING QUIETLY IN BED WITH EYES CLOSED.
--- NOTE | 2016-12-02 01:53 | NUR ---
RN NOTE: PT LYING IN HIGH MAYER'S POSITION WITH EYES CLOSED AND UNLABORED BREATHING. LEFT PORT ACCESSED WITH D5 LR W/ 10 OF KCL INFUSING AT 60 ML / HR. WOUND VAC IN PLACE WITH NO LEAKAGE ALARMS AT THIS TIME. WILL CONTINUE TO MONITOR FOR NEEDS. CALL LIGHT WITHIN REACH.
--- NOTE | 2016-12-02 04:00 | NUR ---
PT RESTING IN BED WITH EYES CLOSED.
[2016-12-02 05:57] LABS: BASOPHILS 0.2 % (0-2); EOSINOPHILS 0.4 % (0-7); HEMATOCRIT 30.1 % (36.0-48.0); LYMPHOCYTES 10.9 % (15-50); MCH 31.1 pg (26.0-34.0); MCHC 33.2 g/dL (31.0-37.0); MCV 93.5 fL (80.0-100.0); MEAN PLATELET VOLUME 8.9 fL (7.4-10.4); MONOCYTES 9.2 % (2-11); NEUTROPHILS 77.3 % (40-80); PLATELET COUNT 428 10x3/uL (130-400); RBC 3.22 10x6/uL (4.00-5.40); RDW 14.3 % (11.5-14.5); WBC 15.3 10x3/uL (4.8-10.8)
--- NOTE | 2016-12-02 06:02 | NUR ---
PT IS RESTING QUIETLY IN BED WITH EYES CLOSED. RESPS ARE EVEN AND UNLABORED. NO ACUTE DISTRESS NOTED.
[2016-12-02 06:05] LABS: INR 1.34 (0.85-1.17); PROTIME 16.5 SECONDS (11.6-15.0)
[2016-12-02 06:12] LABS: CALCIUM 8.2 mg/dL (8.5-10.1); CARBON DIOXIDE 22.2 mmol/L (21.0-32.0); CREATININE - SERUM 1.2 mg/dL (0.6-1.3); MAGNESIUM - SERUM 1.8 mg/dL (1.8-2.4); POTASSIUM - SERUM 3.2 mmol/L (3.5-5.1)
--- NOTE | 2016-12-02 10:33 | NUR ---
OFF UNIT VIA BED FOR PROCEDURE.
--- NOTE | 2016-12-02 12:15 | NUR ---
RETURNED FROM PROCEDURE. A/O X3. NO C/O AT THIS TIME. REPORTS ABDOMINAL PAIN IMPROVED AFTER DRAIN PLACEMENT.
--- NOTE | 2016-12-02 13:00 | NUR ---
LUNCH TRAY SERVED IN ROOM. ATE ALMOST ALL OF MEAL. 240CC DARK BLOODY DISCHARGE EMPTIED FROM DRAIN. WILL MONITOR. VSS.
--- NOTE | 2016-12-02 14:10 | NUR ---
NUTRITION MONITORING & EVAL CHART REVIEWED, PT SLEEPING. REG DIET RESUMED WITH GOOD PO INTAKE LUNCH. WILL HONOR FOOD PREFERENCES, MONITOR PO INTAKE. RD FOLLOWING
--- NOTE | 2016-12-02 15:45 | NUR ---
RESTING QUIETLY WITH EYES CLOSED. NO C/O AT THIS TIME. DENIES NEEDS.
--- NOTE | 2016-12-02 19:44 | NUR ---
UP TO BR WITH MIN ASSIST OF ONE. VOIDED WITHOUT DIFFICULTY. DENIES NEEDS. NO CHANGES NOTED.
[2016-12-03 04:00] VITALS: BP 144/68
[2016-12-03 06:30] LABS: BASOPHILS 0.3 % (0-2); EOSINOPHILS 1.2 % (0-7); HEMATOCRIT 30.2 % (36.0-48.0); HEMOGLOBIN 9.9 g/dL (12-16); IMMATURE GRANULOCYTES 4.2 % (0-5); LYMPHOCYTES 13.2 % (15-50); MCH 30.2 pg (26.0-34.0); MCHC 32.8 g/dL (31.0-37.0); MCV 92.1 fL (80.0-100.0); MONOCYTES 9.2 % (2-11); NEUTROPHILS 71.9 % (40-80); PLATELET COUNT 368 10x3/uL (130-400); RBC 3.28 10x6/uL (4.00-5.40); RDW 14.3 % (11.5-14.5); WBC 12.7 10x3/uL (4.8-10.8)
[2016-12-03 06:43] LABS: ANION GAP 13.8 mmol/L (8-16); CALCIUM 7.8 mg/dL (8.5-10.1); CARBON DIOXIDE 21.9 mmol/L (21.0-32.0); CREATININE - SERUM 1.1 mg/dL (0.6-1.3); MAGNESIUM - SERUM 1.6 mg/dL (1.8-2.4)
[2016-12-03 06:45] LABS: POTASSIUM - SERUM 3.7 mmol/L (3.5-5.1)
--- NOTE | 2016-12-03 07:30 | NUR ---
AWAKE AND ALERT. ORIENTED X3. REQUESTED UP TO BR WITH ONE PERSON MIN ASSIST. VOIDED WITHOUT DIFFICULTY. PALAK CARE PER SELF. LUNGS ARE CLEAR BILATERALLY, NO COUGH NOTED. SKIN IS INTACT WITHOUT REDNESS EXCEPT WOUND TO MID ABDOMEN WHICH HAS A WOUND VAC IN PLACE WITH SCANT SEROUS SANGUINESS DRAINAGE NOTED. BILIARY DRAIN TO LEFT ABDOMEN WITH BLOODY DRAINAGE NOTED. LEFT PORT PATENT WITHOUT REDNESS AT INSERTION SITE. DENIES NEEDS. POSITIONED IN CHAIR AT BEDSIDE FOR COMFORT.
[2016-12-03 08:16] VITALS: BP 133/67
--- NOTE | 2016-12-03 08:45 | NUR ---
ATE ALMOST ALL OF BREAKFAST. ASSISTED TO BED PER STAFF. POSITIONED FOR COMFORT.
[2016-12-03] MEDS ORDERED: BACTRIM DS TABL1 TAB PO (09:39)
--- NOTE | 2016-12-03 12:00 | NUR ---
UP TO BR WITH ONE PERSON MIN ASSIST. VOIDED WITHOUT DIFFICULTY, SMALL AMOUNT OF LOOSE LIGHT BROWN STOOL WELL. REPOSITIONED IN BED FOR COMFORT.
[2016-12-03 12:11] VITALS: BP 147/72
--- NOTE | 2016-12-03 14:08 | NUR ---
WOUND VAC DRESSING CHANGE WOUND TYPE: surgical WOUND LOCATION: midline abd WOUND AGE IN MONTHS:week DEBRIDEMENT ATTEMPTED IN LAST 10 DAYS? DATE/TYPE: SERIAL DEBRIDEMENTS REQUIRED? MEASUREMENT DATE: 12/03/16 10.5cm x 4cm x 2cm (improved) FULL THICKNESS? yes MUSCLE, TENDON OR BONE EXPOSED? no UNDERMINING? no TUNNELING/SINUS? no APPEARANCE OF WOUND BED : pink EXUDATE (AMOUNT, COLOR, ODOR): small serosanguinous no odor FOAM TYPE: black # OF PIECES USED: 1 piece EDUCATION: home vac/home health - pt/family voice understanding -125mmhg mod continuous Pt tolerated well.
--- NOTE | 2016-12-03 15:00 | NUR ---
RESTING QUIETLY IN BED WITH EYES CLOSED. NO NEEDS NOTED.
[2016-12-03 16:07] VITALS: BP 140/68
--- NOTE | 2016-12-03 18:43 | NUR ---
ATE ABOUT 25% OR MEAL. CALLED ME BACK TO ROOM AT THIS TIME TO LET ME KNOW SHE ATE HALF OF TURKEY SANDWICH. NO CHANGES NOTED.
[2016-12-03 20:00] VITALS: BP 140/73
[2016-12-04] VITALS: BP 154/69
--- NOTE | 2016-12-04 03:50 | NUR ---
1945)CHGE, OF SHIFT ASSISTED TO BATHRM ANITRA. WELL RATING PAIN 3 ON 10 PAIN SCALE.WOUND VAC INTACT ABD BILIARY DRAIN DRAINING DK. RED BLOODY DRAINAGEWILL CONTINUE TO MONITO FOR ANY CHGES. AND FOLLOW CURRENT PLAN OF CARE
--- NOTE | 2016-12-04 04:01 | NUR ---
PT IS ASLEEP WITH HOB ELEVATED AND TV ON. RESPIRATIONS ARE EASY AND NO DISTRESS NOTED. BED IS LOW, RAILS UP X'S 2 WITH THE CALL LIGHT AT HAND.
[2016-12-04 05:09] VITALS: BP 140/80
[2016-12-04 06:03] LABS: BASOPHILS 0.4 % (0-2); EOSINOPHILS 1.8 % (0-7); HEMATOCRIT 30.5 % (36.0-48.0); HEMOGLOBIN 10.3 g/dL (12-16); IMMATURE GRANULOCYTES 5.3 % (0-5); LYMPHOCYTES 12.8 % (15-50); MCH 31.7 pg (26.0-34.0); MCHC 33.8 g/dL (31.0-37.0); MCV 93.8 fL (80.0-100.0); MEAN PLATELET VOLUME 8.7 fL (7.4-10.4); NEUTROPHILS 68.7 % (40-80); PLATELET COUNT 386 10x3/uL (130-400); RBC 3.25 10x6/uL (4.00-5.40)
[2016-12-04 06:25] LABS: ANION GAP 11.9 mmol/L (8-16); CARBON DIOXIDE 24.5 mmol/L (21.0-32.0); CREATININE - SERUM 1.1 mg/dL (0.6-1.3); MAGNESIUM - SERUM 1.6 mg/dL (1.8-2.4); POTASSIUM - SERUM 3.4 mmol/L (3.5-5.1)
--- NOTE | 2016-12-04 07:40 | NUR ---
UP TO BATHROOM, BED LOWEST POSIITON, DENIES OTHER NEEDS, CALL LIGHT IN REACH, WILLL CONTINUE TO MONITOR
[2016-12-04 09:14] VITALS: BP 146/78
--- NOTE | 2016-12-04 10:15 | NUR ---
AMBULATING IN THE HALLWAY WITH PHYSICAL THERAPY AT THIS TIME. WOUND VAC INTACT. DENIES NEEDS AT PRESENT TIME. RESPIRATIONS EVEN AND NON LABORED. CALL LIGHT IN REACH, WILL CONTINUE WITH PLAN OF CARE.
[2016-12-04 12:20] VITALS: BP 147/78
[2016-12-04 15:58] VITALS: BP 149/73
--- NOTE | 2016-12-04 20:36 | NUR ---
REC'D IN BED AWAKE AND ALERT. RESP EVEN AND UNLABORED WITH NO DISTRESS NOTED. CAN EXPRESS NEEDS AND WANTS. C/O PAIN RATING 2/10 AT THIS TIME. ASSESSMENT COMPLETED. C/L IN REACH AT BEDSIDE.
[2016-12-04 23:14] VITALS: BP 139/75
--- NOTE | 2016-12-05 03:17 | NUR ---
RESTING WITH EYES CLOSED, NO DISTRESS NOTED, FALL PRECAUTIONS IN PLACE, CL IN REACH
[2016-12-05 04:00] VITALS: BP 153/79
--- NOTE | 2016-12-05 08:02 | NUR ---
LYING IN BED, COMPLAINTS OF CONSTANT PAIN BY HER BILIARY DRAIN, DENIES NEEDS, BED LOWEST POSITION, CALL LIGHT IN REACH, WILL CONTINUE TO MONITOR
[2016-12-05 09:35] VITALS: BP 115/62
[2016-12-05 12:31] VITALS: BP 112/68
--- NOTE | 2016-12-05 13:42 | NUR ---
FAMILY AT BEDSIDE, DENIES NEEDS, WILL CONTIUE TO MONITOR
[2016-12-05 20:00] VITALS: BP 139/71
--- NOTE | 2016-12-05 20:02 | NUR ---
PRN NORCO GIVEN PER REQUEST FOR C/O DRAIN SITE PAIN ALONG WITH ROUTINE MEDS, ANITRA WELL, FALL PRECAUTIONS IN PLACE, CL IN REACH
--- NOTE | 2016-12-05 23:16 | NUR ---
RESTING WITH EYES CLOSED, NO DISTRESS NOTED, WOUND VAC IN PLACE, SR'S UP, CL IN REACH
--- NOTE | 2016-12-06 03:25 | NUR ---
PRN PAIN MED GIVEN FOR C/O ABD PAIN, ANITRA WELL, DENIES OTHER NEEDS, CL IN REACH
[2016-12-06 04:00] VITALS: BP 128/68
--- NOTE | 2016-12-06 07:30 | NUR ---
AWAKE AND ALERT. ORIENTED X3. NO C/O AT THIS TIME. LUNGS ARE CLEAR BILATERALLY, NO COUGH NOTED. SKIN IS INTACT WITHOUT REDNESS EXCEPT MIDABDOMINAL INCISION WHICH HAS A WOUND VAC IN PLACE WITH SCANT SEROUS SANGUINESS DISCHARGE NOTED. LEFT PORT PATENT WITHOUT REDNESS AT INSERTION SITE. DENIES NEEDS.
[2016-12-06 08:25] VITALS: BP 148/77
--- NOTE | 2016-12-06 10:00 | NUR ---
SITTING UP IN CHIAR AT BEDSIDE PERFORMING ADL'S WITH HELP OF FAMILY. NO NEEDS NOTED.
[2016-12-06 11:16] VITALS: BP 129/72
--- NOTE | 2016-12-06 11:44 | NUR ---
WOUND VAC DRESSING CHANGE WOUND TYPE: SURGICAL WOUND LOCATION: MIDLINE ABD WOUND AGE IN MONTHS: WEEKS DEBRIDEMENT ATTEMPTED IN LAST 10 DAYS? DATE/TYPE: SERIAL DEBRIDEMENTS REQUIRED? MEASUREMENT DATE: 12/06/16 10.5CM X 3.5CM X 1CM FULL THICKNESS? YES MUSCLE, TENDON OR BONE EXPOSED? NO UNDERMINING? NO TUNNELING/SINUS? NO APPEARANCE OF WOUND BED : RED WITH SLOAN DOWN CENTER EXUDATE (AMOUNT, COLOR, ODOR): SMALL SEROUS NO ODOR FOAM TYPE: BLACK # OF PIECES USED: 2 PIECES EDUCATION: EXPLAINED HOW WOUND HEALING OCCURS WHEN USING WOUND VAC -125MMHG MOD CONTINUOUS WOUND CARE WILL CONTINUE TO MONITOR.
--- NOTE | 2016-12-06 12:00 | NUR ---
LUNCH SERVED IN ROOM. NO NEW NEEDS NOTED.
[2016-12-06 12:53] VITALS: BP 160/75
--- NOTE | 2016-12-06 15:00 | NUR ---
FAMILY AND PATIENT INSTRUCTED IN CARE OF BILIARY DRAIN WITH RETURN DEMONSTRATION. ALL QUESTIONS ANSWERED.
[2016-12-06 15:57] VITALS: BP 175/75
--- NOTE | 2016-12-06 16:08 | NUR ---
CM REASSESSMENT NOTE: PATIENT IS DISCHARGING HOME TODAY-FAMILY AWARE AND WILL DRIVE HER HOME. [facility] HAS BEEN NOTIFIED.
--- NOTE | 2016-12-06 17:15 | NUR ---
DISCHARGED TO HOME AMBULATORY WIHT FAMILY. DISCHARGE INSTRUCTIONS GIVEN BOTH VERBALLY AND WRITTEN. ALL QUESTIONS ANSWERED. PATIENT AND FAMILY VERBALIZED UNDERSTANDING OF SAME. NEEDED PRESCRIPTIONS ESCRIBED TO PHARMACY OF CHOICE. PATIENT AND FAMILY EDUCATED RE WOUND VAC CARE AND BILIARY DRAIN CARE WITH RETURN DEMONSTRATION. ALL QUESTIONS ANSWERED. LEFT PORT HEP FLUSHED AND DEACCESSED PER PROTOCAL.
== END 2016-12-06 17:15 | disposition home health service (06) | DRG 862 ==
LOC: D.ER 09:12 → D.MS 12:33
PROVIDERS: Emergency Medicine; General Practice; Surgery; ADMIT Surgery
PROC: 2W13X6Z Compression of Abdominal Wall using Pressure Dressing (ICD-10-PCS; principal; 2016-11-29)
PROC: 0W9G30Z Drainage of Peritoneal Cavity with Drainage Device, Percutaneous Approach (ICD-10-PCS; 2016-12-02)
DX: T81.4XXA Infection following a procedure, initial encounter (principal); K65.1 Peritoneal abscess; N39.0 Urinary tract infection, site not specified; K50.90 Crohn's disease, unspecified, without complications; N18.9 Chronic kidney disease, unspecified; D64.9 Anemia, unspecified; B96.20 Unspecified Escherichia coli [E. coli] as the cause of diseases classified elsewhere

== ENCOUNTER → 2016-12-10 10:06 | Outpatient (CLI) | payer BC ==
[2016-11-29 16:08] VITALS: BMI 20.1
[~2016-12-10 10:06] MED LIST changes: +BACTRIM DS TABL1 TAB PO
== END | disposition home or self-care (01) ==
LOC: D.US 10:06
DX: R60.0 Localized edema (principal)

== ENCOUNTER → 2016-12-13 08:11 | Outpatient (CLI) | payer BC ==
[2016-11-29 16:08] VITALS: BMI 20.1
[2016-12-13 09:04] LABS: BASOPHILS 0.6 % (0-2); EOSINOPHILS 0.5 % (0-7); HEMATOCRIT 34.6 % (36.0-48.0); LYMPHOCYTES 12.8 % (15-50); MCH 30.4 pg (26.0-34.0); MCHC 31.8 g/dL (31.0-37.0); MCV 95.6 fL (80.0-100.0); MEAN PLATELET VOLUME 9.1 fL (7.4-10.4); MONOCYTES 9.1 % (2-11); PLATELET COUNT 477 10x3/uL (130-400); RBC 3.62 10x6/uL (4.00-5.40); RDW 14.6 % (11.5-14.5); WBC 14.3 10x3/uL (4.8-10.8)
[2016-12-13 09:11] LABS: CARBON DIOXIDE 22.3 mmol/L (21.0-32.0); CREATININE - SERUM 1.3 mg/dL (0.6-1.3); POTASSIUM - SERUM 3.3 mmol/L (3.5-5.1)
== END | disposition home or self-care (01) ==
LOC: D.LAB 08:11 → D.CT 08:30
PROVIDERS: Surgery
DX: R18.8 Other ascites (principal)

== ENCOUNTER → 2016-12-31 07:52 | Outpatient (CLI) | payer BC ==
[2016-11-29 16:08] VITALS: BMI 20.1
== END | disposition home or self-care (01) ==
LOC: D.LAB 07:52 → D.CT 08:30
DX: R10.9 Unspecified abdominal pain (principal); T81.4XXA Infection following a procedure, initial encounter

== ENCOUNTER 2017-01-04 05:19 | Outpatient (CLI) | payer BC ==
[~2017-01-04] VITALS: Ht 162.6 cm; Wt 67.3 kg
[2017-01-04 06:33] LABS: APTT 27.9 SECONDS (22.8-39.4); INR 1.26 (0.85-1.17); PROTIME 15.6 SECONDS (11.6-15.0)
[2017-01-04 06:47] LABS: ANION GAP 15.1 mmol/L (8-16); CALCIUM 8.9 mg/dL (8.5-10.1); CARBON DIOXIDE 24.9 mmol/L (21.0-32.0); CREATININE - SERUM 1.2 mg/dL (0.6-1.3)
[2017-01-04 07:02] VITALS: BP 154/88; Ht 162.6 cm; Wt 67.3 kg
[2017-01-04] MEDS ORDERED: FLAGYL500 MG PO (07:11)
[2017-01-04] MEDS ORDERED: LEVAQUIN500 MG PO (07:11)
[2017-01-04] MEDS ORDERED: PREDNISONE20 MG PO (07:12)
[2017-01-04] MEDS ORDERED: ELIQUIS5 MG PO (07:13)
[2017-01-04] MEDS ORDERED: XANAX1 MG PO (07:13)
[2017-01-04] MEDS ORDERED: MESALAMINE800 MG PO (07:14)
[2017-01-04 07:17] LABS: BASOPHILS 0.1 % (0-2); EOSINOPHILS 0 % (0-7); HEMOGLOBIN 11.2 g/dL (12-16); IMMATURE GRANULOCYTES 1.4 % (0-5); LYMPHOCYTES 12.1 % (15-50); MCH 29.6 pg (26.0-34.0); MCV 92.6 fL (80.0-100.0); MEAN PLATELET VOLUME 8.7 fL (7.4-10.4); MONOCYTES 5.4 % (2-11); RBC 3.78 10x6/uL (4.00-5.40); RDW 14.6 % (11.5-14.5)
[2017-01-04 07:26] LABS: PLATELET COUNT 602 10x3/uL (130-400)
== END 2017-01-04 12:30 | disposition home or self-care (01) ==
LOC: D.SP 05:19 → D.OPS 05:19 → D.SP 08:00 → D.OPS 12:30
PROVIDERS: Radiology Diagnostic Radiology
DX: L02.818 Cutaneous abscess of other sites (principal); Z01.812 Encounter for preprocedural laboratory examination

== ENCOUNTER 2017-01-11 07:10 | Outpatient (CLI) | payer BC ==
[~2017-01-11] VITALS: Ht 162.6 cm; Wt 67.3 kg
--- NOTE | ~2017-01-11 | HEMODYNAMI ---
PATIENT:DUNG CARVAJAL MEDICAL RECORD: [id number] : 41 LOCATION:[facility] ADMISSION DATE: 01/11/17 Generatedon:01/11/201711:19 Patient name: DUNG CARVAJAL Patient #: [id number] SSN: DO B: 1945 Date of study: 01/11/2017 Page: Of Hemodynamic Procedure Report Patient Data Patient Demographics Procedure consent was obtained First Name: DUNG Gender: Female Last Name: WEI : 1945 Middle Initial: A Age: 71 year(s) Patient #: [id number] Race: Black Additional ID: [id number] Contact details [address]: [address] [place] [address] DR State: [place] City: [facility] Zip code: [address] Admission Admission Data Admission Date: 01/11/2017 Admission Time: 7:10 Procedure Procedure Types Cath Procedure Peripheral Cath Diagnostic Procedure Miscellaneous Procedure Description Procedure Date Procedure Date: 01/11/2017 Procedure Start Time: 11:05 Procedure Staff Name Function Reginald Campos MD Performing Physician Ronny Telles RT Scrub Ronny Telles RT Monitor Marylin Peralta RN Nurse Procedure Data Cath Procedure Fluoroscopy Diagnostic fluoroscopy Total fluoroscopy Time: 0.8 time: 0.8 min min Diagnostic fluoroscopy Total fluoroscopy dose: 20 dose: 20 mGy mGy Contrast Material Contrast Material Type Amount (ml) Isovue 300 4 Procedure Medications Medication Administration Route Dosage Versed I.V. 1 mg Fentanyl 50 mcg Fentanyl 50 mcg Versed I.V. 1 mg Hemodynamics Rest Heart Rate: 57 (bpm) Snapshots Pre Cath Intra NCS Post Cath Vital Signs Time Heart Resp SPO2 NIBP (mmHg) Rhythm Pain Sedation Rate (ipm) (%) Status Level (bpm) 10:47:10 81 22 99 196/110(149) NSR 0 (11) 10(A) , No pain 10:51:38 61 20 98 188/88(148) NSR 0 (11) 10(A) , No pain 10:56:04 72 16 99 171/92(155) NSR 0 (11) 10(A) , No pain 11:00:26 73 20 98 175/98(153) NSR 0 (11) 10(A) , No pain 11:04:51 73 14 98 180/97(147) NSR 0 (11) 10(A) , No pain 11:09:17 67 19 96 179/91(140) NSR 0 (11) 10(A) , No pain 11:13:37 66 15 96 166/78(131) NSR 0 (11) 10(A) , No pain 11:18:01 63 13 95 157/80(127) NSR 0 (11) 10(A) , No pain Medications Time Medication Route Dose Verified Delivered Reason Notes Effectivene ss by by 11:05:02 Fentanyl 50 Marylin Marylin for mcg Fabian Fabian sedation RN RN 11:05:09 Versed I.V. 1 mg Marylin Marylin for Fabian Fabian sedation RN RN 11:10:37 Fentanyl 50 Marylin Marylin for mcg Fabian Fabian sedation RN RN 11:10:45 Versed I.V. 1 mg Marylin Marylin for Fabian Fabian sedation RN baler operator Log Time Note 10:37:59 Ronny Telles RT (R) (CV) sent for patient. Start room use. 10:38:07 Time tracking: Regular hours 10:38:11 Plan of Care:Hemodynamics will remain stable., Cardiac rhythm will remain stable., Comfort level will be maintained., Respiratory function will remain adequate., Patient/ family verbilizes understanding of procedure., Procedure tolerated without complication., Recovers from procedure without complications.. 10:38:24 Patient received from Outpatients to IR Alert and oriented. Tansferred to table in Supine position. 10:38:26 Correct patient and procedure confirmed by team. 10:38:28 Signed procedure consent form obtained from patient. 10:38:29 ECG and BP/O2 sat monitors applied to patient. 10:38:30 - 10:38:32 Full Disclosure recording started 10:38:36 H&P Date Dictated: 01/11/2017 H&P Addendum completed by physician on day of procedure. (MUST COMPLETE FOR ALL OUTPATIENTS). 10:38:37 Pre-procedure instructions explained to patient. 10:38:37 Pre-op teaching completed and patient verbalized understanding. 10:38:39 Family in waiting room. 10:38:41 Patient NPO since Midnight. 10:38:43 Is the patient allergic to Iodine/contrast media? No. 10:40:11 Was the patient premedicated? No 10:40:13 Is patient on blood thinner?Yes 10:40:15 Patient diabetic? No. 10:40:16 - 10:40:17 ----Pre-sedation anethsthesia assessment.---- 10:40:20 Previous problem with sedation/anesthesia? No ? 10:40:21 Snore? Yes 10:40:22 Sleep apnea? No 10:40:24 Deviated septum? No 10:40:26 Opens mouth fully? Yes 10:40:28 Sticks out tongue? Yes 10:40:30 Airway obstruction? No ? 10:40:33 Dentures? No ? 10:40:48 Patient pain scale 0/10 no pain\. 10:40:58 Baseline sample Acquired. 10:40:58 Vital chart was started 10:41:06 Use device set IR Diagnostic 10:41:08 Sterile Angiographic Pack opened to sterile field. 10:41:10 Bag Decanter opened to sterile field. 10:45:17 IV patent on arrival in right hand with 0.9% NaCl at [facility]. 10:45:19 Sharps counted by scrub and verified by R.N. 10:45:19 Alarms reviewed by R. N. 10:45:25 Left abdomen area was prepped with chlora-prep and draped in sterile fashion 11:01:33 Physician arrived 11:01:34 --------ALL STOP TIME OUT------ 11:01:35 Final Timeout: patient, procedure, and site verified with staff and physician. All members of the team are in agreement. 11:01:47 Left abdomen site verified by team. 11:02:26 Physical assessment completed. ASA score P 3 - A patient with severe systemic disease as per Reginald Campos MD. 11:02:30 Sedation plan: IV Moderate Sedation Versed, Fentanyl 11:05:02 Fentanyl 50 mcg was administered by Marylin Peralta RN; for sedation; 11:05:09 Versed 1 mg I.V. was administered by Marylin Peralta RN; for sedation; 11:05:16 Procedure started. 11:05:23 Local anesthetic to Abdominal area with Lidocaine 1% by Reginald Campos MD.INITIAL ACCESS ONLY 11:10:06 Terumo ANGLE 260cm glide wire opened to sterile field. 11:10:37 Fentanyl 50 mcg was administered by Marylin Peralta RN; for sedation; 11:10:45 Versed 1 mg I.V. was administered by Marylin Peralta RN; for sedation; 11:12:23 Procedure ended.(Physican Out) 11:13:32 Fluoroscopy time 00.80 minutes. 11:13:36 Fluoroscopy dose: 20 mGy 11:13:36 Flurop Dose total: 20 11:13:44 Contrast amount:Isovue 300 4ml. 11:13:46 Sharps counted by scrub and verified by R.N. 11:13:49 Insertion/operative site no bleeding no hematoma. 11:14:04 Post-op/insertion site Left Abdominal area dressed using a 4 x 4 and Tegaderm. 11:14:19 Post-procedure physical assessment completed. ASA score P 3 - A patient with severe systemic disease as per Reginald Campos MD. 11:14:21 Post procedure instruction explained to patient.Patient verbalizes understanding. 11:19:09 Report given to Outpatients. 11:19:14 Patient transfered to Outpatients with Stretcher. 11:19:57 Vital chart was stopped Device Usage Item Name Manufacture Quantity Catalog Hospital Part Current Minimal Lot# / Number Charge Number Stock Stock Serial# Code Sterile Cardinal 1 [id number] 5 Angiographic Health Pack Bag Decanter Microtek 1 [id number] 5 [facility]Pay [facility]. [place] [address] [id number] 260cm glide wire Signature Audit [place] Stage Time Signature Unsigned Intra-Procedure 01/11/2017 Ronny 11:19:54 AM Elfego RT (R) (CV) Signatures Monitor : Ronny Signature : Elfego RT Date : Time : [id number] [place] [address]
[~2017-01-11 07:10] MED LIST changes: +ELIQUIS5 MG PO; +FLAGYL500 MG PO; +LEVAQUIN500 MG PO; +MESALAMINE800 MG PO; +PREDNISONE20 MG PO; +XANAX1 MG PO
[2017-01-11 08:34] VITALS: Ht 162.6 cm; Wt 67.3 kg
[2017-01-11 08:44] LABS: BASOPHILS 0.1 % (0-2); EOSINOPHILS 0.2 % (0-7); HEMATOCRIT 37.8 % (36.0-48.0); HEMOGLOBIN 12.3 g/dL (12-16); IMMATURE GRANULOCYTES 1.3 % (0-5); LYMPHOCYTES 16.7 % (15-50); MCH 29.8 pg (26.0-34.0); MCHC 32.5 g/dL (31.0-37.0); MCV 91.5 fL (80.0-100.0); MEAN PLATELET VOLUME 9.2 fL (7.4-10.4); MONOCYTES 6.2 % (2-11); NEUTROPHILS 75.5 % (40-80); PLATELET COUNT 361 10x3/uL (130-400); RBC 4.13 10x6/uL (4.00-5.40); RDW 16.5 % (11.5-14.5); WBC 17.4 10x3/uL (4.8-10.8)
[2017-01-11 08:53] LABS: APTT 24.6 SECONDS (22.8-39.4); INR 1.14 (0.85-1.17); PROTIME 14.5 SECONDS (11.6-15.0)
[2017-01-11 08:57] LABS: ANION GAP 12.3 mmol/L (8-16); CALCIUM 8.9 mg/dL (8.5-10.1); CARBON DIOXIDE 27.3 mmol/L (21.0-32.0); CREATININE - SERUM 1.3 mg/dL (0.6-1.3)
[2017-01-11 09:04] LABS: POTASSIUM - SERUM 2.6 mmol/L (3.5-5.1)
--- NOTE | 2017-01-11 09:11 | NUR ---
CALL RECEIVED FROM LAB ABOUT ABNORMAL LAB RESULT, POTASSIUM 2.6. CALL PLACED TO RUBIO CALDERON RN, SPECIALS, AND REPORTED THIS POTASSIUM LEVEL WELL WBC 17.4. NO NEW ORDERS OF THIS TIME
--- NOTE | 2017-01-11 15:20 | NUR ---
1430 POTASSIUM INFUSION COMPLETED. PORT FLUSHED WITH 10ML NACL. PORT FLUSHED WITH 5ML HEP FLUSH SOLUTIOM EASILY WITHOUT DIFFICULTY OR SWELLING @ SITE. BAND AID TO SITE. Pau KINGSTON R.N. 1438 DRESSED. GIVEN DISCHARGE INSTRUCTIONS & MED REC. VOICED UNDERSTANDING. TO PRIVATE CAR PER PRIVATE WHEELCHAIR WITH FRIEND. Pau KINGSTON R.N.
== END 2017-01-11 14:35 | disposition home or self-care (01) ==
LOC: D.OPS 07:10 → D.CT 08:30 → D.SP 10:00 → D.OPS 14:35
PROVIDERS: General Practice
DX: L02.211 Cutaneous abscess of abdominal wall (principal); Z01.812 Encounter for preprocedural laboratory examination

== ENCOUNTER 2017-01-19 11:07 | Inpatient (IN) | payer MEDICARE, BC ==
[~2017-01-19] VITALS: Ht 162.6 cm; Wt 74.5 kg
[2017-01-19 15:02] LABS: BASOPHILS 0.1 % (0-2); EOSINOPHILS 0.1 % (0-7); HEMATOCRIT 39.5 % (36.0-48.0); IMMATURE GRANULOCYTES 0.8 % (0-5); LYMPHOCYTES 5.1 % (15-50); MCH 30.8 pg (26.0-34.0); MCHC 32.9 g/dL (31.0-37.0); MCV 93.6 fL (80.0-100.0); MEAN PLATELET VOLUME 9.2 fL (7.4-10.4); NEUTROPHILS 91.9 % (40-80); PLATELET COUNT 324 10x3/uL (130-400); RBC 4.22 10x6/uL (4.00-5.40); RDW 17.9 % (11.5-14.5); WBC 15.7 10x3/uL (4.8-10.8)
[2017-01-19 15:24] LABS: INR 1.32 (0.85-1.17); PROTIME 16.3 SECONDS (11.6-15.0)
[2017-01-19 15:38] LABS: BILIRUBIN - TOTAL 0.38 mg/dL (0.2-1.3); CARBON DIOXIDE 30.2 mmol/L (21.0-32.0); CREATININE - SERUM 1.2 mg/dL (0.6-1.3); MAGNESIUM - SERUM 1.7 mg/dL (1.8-2.4); POTASSIUM - SERUM 3.2 mmol/L (3.5-5.1); PROTEIN - SERUM 7.5 g/dL (6.4-8.2)
[2017-01-19 16:07] LABS: APTT < 200.0 SECONDS (22.8-39.4)
--- NOTE | 2017-01-19 16:54 | NUR ---
PT TO ROOM ALERT AND ORIENTED. FAMILY AT BEDSIDE. ER STOPPED HEPARIN DRIP AT 1440 AND REDRAW DUE IN ONE HOUR. ORDERED FOR 1740.
[2017-01-19 16:59] VITALS: BP 156/79; BMI 24.0
[2017-01-19] MEDS ORDERED: ASACOL HD800 MG PO (16:59)
--- NOTE | 2017-01-19 17:13 | NUR ---
PT HAS A ABDOMINAL WOUND VAC THAT WAS PLACED IN NOVEMBER PER PT. PT STATES THEY CHANGED THE DRESSING TODAY. WOUND CARE [facility] NOT HERE. LISBETH UNIT MANAGEER SAID OK TO LEAVE WOUND VAC ON HOME WOUND VAC UNTIL YOANA SEES PT TOMORROW. PT WITH MULTIPLE FAMILY MEMBERS AT BEDSIDE. DENIES ANY OTHER NEEDS AT THIS TIME WILL CONT TO MONITOR
--- NOTE | 2017-01-19 17:33 | NUR ---
PT FAMILY MEMBER CAME OUT AND WAS INQUIRING ABOUT PT SUPPOSED TO BE SET UP TO RECEIVE B12 SHOTS. ALSO WANTING HER HOME XANAX AND NORCO RESTARTED. PAGE IN TO DR DOAN TO INQUIRE ABOUT ALL. I GOT IN REPORT FROM ER NURSE ADELA THAT PT WAS ON THE HEPARIN DRIP PROTOCOL. THE ORDER STATES CONTINUOUS AT 1000 UNITS/HR. ADELA STOPPED THE HEP DRIP AT 1640 TO REDRAW LAB BECAUSE PT/INR WAS TOO ELEVATED AND SAID THAT LAB NEEDED TO BE DRAWN TO RECHECK IN ONE HOUR. ALREADY ORDERED LAB. WILL ASK DR DOAN ABOUT THIS SITUATION AND SEE IF HE WANTS TO CHANGE TO THE PROTOCOL.
[2017-01-19 17:49] LABS: INR 1.21 (0.85-1.17); PROTIME 15.2 SECONDS (11.6-15.0)
[2017-01-19 18:31] LABS: HEMATOCRIT 37.7 % (36.0-48.0); HEMOGLOBIN 12.3 g/dL (12-16); MCH 30.8 pg (26.0-34.0); MCHC 32.6 g/dL (31.0-37.0); MCV 94.3 fL (80.0-100.0); MEAN PLATELET VOLUME 9.1 fL (7.4-10.4); RDW 18.2 % (11.5-14.5); WBC 15.7 10x3/uL (4.8-10.8)
--- NOTE | 2017-01-19 18:35 | NUR ---
PT SITTING UP IN BED EATING DINNER. XANAX GIVEN PER EMAR FOR ANXIETY. PT VERY UPSET AND CRYING ABOUT HAVING TO BE ADMITTED TO THE HOSPITAL AGAIN. STILL WAITING ON HEMOGRAM AND PTT LABS TO START HEP DRIP PROTOCOL. WILL START UP ONCE LABS ARE BACK
--- NOTE | 2017-01-19 19:45 | NUR ---
PT RETURNED FROM CT. ALERT AND ORIENTED X 3. DENIES ACUTE DISCOMFORT AT THIS TIME. HEPARIN INFUSION RESTARTED AT THIS TIME AT 600 PER HR. INFUSING TO LEFT CHEST PORT WITHOUT DIFFICULTY. WOUND VAC TO ABD IS CDI. FAMILY MEMBER IS AT THE BEDSIDE. SR'S ARE UP X 2 IN BED. CALL LIGHT AND BEDSIDE TABLE ARE WITHIN EASY REACH.
[2017-01-19 20:00] VITALS: BP 161/63
[2017-01-19] MEDS ORDERED: PREDNISONE20 MG PO (20:47)
--- NOTE | 2017-01-19 21:43 | NUR ---
PT IS RESTING IN BED FINISHING HER SUPPER. NO OTHER NEEDS VOICED.
--- NOTE | 2017-01-19 23:51 | NUR ---
PT IS RESTING QUIETLY IN BED WITH EYES CLOSED. NO DISTRESS NOTED.
--- NOTE | 2017-01-20 01:23 | NUR ---
PTT 39.4 NO CHANGE
[2017-01-20 01:25] VITALS: BP 125/71
--- NOTE | 2017-01-20 02:39 | NUR ---
RESTING IN BED WITH EYES CLOSED.
--- NOTE | 2017-01-20 03:58 | NUR ---
MANAGER INTERFACE AT BEDSIDE TO OBTAIN VITALS, CALL LIGHT IN REACH. WILL CONTINUE WITH PLAN OF CARE.
[2017-01-20 04:12] VITALS: BP 154/77
--- NOTE | 2017-01-20 05:19 | NUR ---
PT RESTING IN BED WITH EYES CLOSED. NO ACUTE DISTRESS NOTED. HEPARIN DRIP INFUSING.
--- NOTE | 2017-01-20 07:24 | NUR ---
PT SITTING UP IN BED WATCHING TV. PT STATES SHE FEELS MUCH MORE ANXIOUS THAN YESTERDAY WHEN SHE WAS ADMITTED. DENIES ANY NEEDS AT THIS TIME WILL CONT TO MONITOR
[2017-01-20 09:12] VITALS: BP 137/64
--- NOTE | 2017-01-20 11:10 | HP ---
PATIENT: DUNG CARVAJAL MEDICAL RECORD: [id number] ACCOUNT: [id number] LOCATION:D. D.2106 : 41 ADMISSION DATE: 01/19/17 HISTORY AND PHYSICAL EXAMINATION CHIEF COMPLAINT: Pain and swelling in left leg for about a week. HISTORY OF PRESENT ILLNESS: This is a 71-year-old black female with a history of Crohn disease. She has had a previous right hemicolectomy and ileocecectomy many years ago. She underwent exploratory laparotomy on 11/17/2016 and had resection of the ileocolonic anastomosis by Dr. Ivey. She was discharged home only to come back a few days later with wound infection requiring a wound VAC and a placement of drain for loculated fluid collections in the abdomen. On 12/10/2016, she had a venous Doppler ultrasound of the lower extremities and it did show a left lower extremity DVT and at that time, Dr. Ivey placed her on Eliquis 5 mg twice a day. She has been taking it all this time except for 2 periods when she was told to stop it for 3 days prior to her procedure. The last time she did not take it was 01/10/2017, 01/11/2017 and 01/12/2017 when she had the last drain removed from her abdomen. She restarted the Eliquis on 01/13/2017. She states that she slept for a long time after the procedure on 01/12/2017, woke up in the morning of 01/13/2017 and had noticed increased swelling in her left lower extremity from the upper thigh down. Basically, she ____ let it go until home health nurse told her today that she really need to go in and get that looked at. She presented to the ER today and it was found that she had further development of left lower extremity DVT. She is admitted on a heparin drip at this time. PAST MEDICAL AND SURGICAL HISTORY: Again, Crohn's disease and hypertension. She had hepatitis C, not sure how she got it, but probably had a blood transfusion during one of her early surgeries. This was done at the [facility] on [facility] in [facility]. She did get the hepatitis C treated within the last year or 2. She is followed by Dr. Ham. PAST SURGICAL HISTORY: Again, she has had right hemicolectomy and ileocecectomy. She has had a cholecystectomy. She had one ovary removed at one time and on a previous GI surgery where Dr. Clark, he removed the other ovary and then she underwent the exploratory lap on 11/17/[address] Ivey. ALLERGIES: PHENERGAN. HOME MEDICATIONS: Asacol 2 pills 3 times a day, losartan 25 mg once a day, Eliquis 5 mg twice a day, Xanax 1 mg t.i.d. p.r.n. anxiety, [place] 5/325 q.4 hours p.r.n. pain and prednisone 20 mg daily, this week and will go down next week per Dr. Ham's orders. SOCIAL HISTORY: She is . Her has dementia and she provides care for him. 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 HABITS: She smoked while she was in college. No alcohol or drugs. FAMILY HISTORY: Father at age 70 of an AL. He had epilepsy. Mother at 99 of old age. There is no known family history of previous blood clots. HISTORY AND PHYSICAL [id number] DUNG CARVAJAL REVIEW OF SYSTEMS: GENERAL: No major weight changes. HEENT: No particular sinus or allergy problems. RESPIRATORY: No history of asthma or emphysema. GASTROINTESTINAL: See above history with her Crohn's and surgeries. GENITOURINARY: No significant problems there. MUSCULOSKELETAL: No significant problems there. NEUROLOGIC: No migraines or seizures. PSYCHIATRIC: Denies depression or melancholia. She has had some recent anxiety and has been placed on Xanax for this ordeal that has been going over the last couple of months. PHYSICAL EXAMINATION: VITAL SIGNS: Temperature 98.0, pulse 88, respirations 16 and blood pressure 153/91. She does not appear in acute distress at this time, though earlier, she reported to the nurse that she did not feel right in her head and had headache and some visual changes. HEENT: Grossly within normal limits. NECK: Supple. No JVD or bruit. HEART: Regular rate and rhythm without murmur. LUNGS: Clear. ABDOMEN: Soft and nontender at this time. EXTREMITIES: Right lower extremity. No edema. Left lower extremity, she has swelling all the way up to the groin and generalized tenderness especially proximally. LABORATORY DATA: Verbal report of the venous Doppler ultrasound today shows extensive left lower extremity DVT. CBC showed a white count 15,700, hemoglobin 12.3, hematocrit 37.7, INR 1.21. Liver functions are all normal. Basic metabolic panel is normal except potassium a little low at 3.2. CT of the head was done this evening because of her acute onset of headache that shows no acute process. ASSESSMENT: 1. Left lower extremity deep venous thrombosis. 2. Crohn's disease with recent resection of ileocolonic anastomosis. 3. Hypertension. PLAN: She is on heparin drip right now, we will hold Eliquis for right now. Dr. Ivey has been consulted. Consider consulting interventional radiology, they did mention in one of their x-ray reports to consider a thrombectomy. Other tests and procedures as warranted. TRANSINT:[id number] Voice Confirmation ID: [id number] DOCUMENT ID: [id number] HISTORY AND PHYSICAL [id number] DUNG CARVAJAL WILLIAM MD at 1110 CC: [id number] DICTATION DATE: 01/19/172043 PHYSICIAN OFFICE SECRETARY: 01/20/17 0007 ADM IN [facility] [address] [id number]
[2017-01-20 12:50] VITALS: BP 155/64
[2017-01-20 13:22] VITALS: Ht 162.6 cm; Wt 74.5 kg
[2017-01-20 16:53] VITALS: BP 116/60
--- NOTE | 2017-01-20 16:55 | NUR ---
LAB SAID THAT LABS THAT DR SUTTON ORDERED HAVE TO BE SENT OUT AND THAT IS TOO LATE IN THE DAY FOR THEM TO BE SENT OUT TODAY AND ASKED IF THEY COULD DRAW IN THE AM AND SEND THEM OFF THEN SINCE THEY CAN NOT BE SENT [place]
--- NOTE | 2017-01-20 17:58 | NUR ---
PT SITTING UP IN BED WITH DAUGHTER AT BEDSIDE PT DENIES ANY NEEDS OTHER THAN XANAX AND WATER BOTH GIVEN.
--- NOTE | 2017-01-20 19:43 | NUR ---
Received patient in bed resting quietly, Heparin infusing @8ml/hr in left chest infusa port. Next PTT due @0500 tomorrow.
[2017-01-20 21:16] VITALS: BP 118/61
[2017-01-21] VITALS: BP 112/65
--- NOTE | 2017-01-21 02:33 | NUR ---
Abdominal wound vac on, dressing C/D/I. Sleeping at this time, Heparin continues to infuse at 8mls/hr. No signs of distress.
[2017-01-21 04:35] VITALS: BP 125/62
--- NOTE | 2017-01-21 07:17 | NUR ---
AM ROUNDS- PT IN BED, DENIES ANY NEEDS AT THIS TIME. LT CHEST PORT INFUSING HAPARIN AT 8. PT ON RA, BED LOW AND WHEELS LOCKED, BEDSIDE RAILSX2. WOUND VAC TO LT THIGH, CALL LIGHT IN REACH, NAD NOTED, WILL CONTINUE TO MONITOR.
--- NOTE | 2017-01-21 08:58 | NUR ---
AM MEDS GIVEN, HELPED PT TO BATHROOM. PT WILL TURN CALL LIGHT ON WHEN DONE USING BATHROOM. PT DENIES ANY OTHER NEEDS AT THIS TIME. CALL LIGHT IN REACH, NAD NOTED, WILL CONTINUE TO MONITOR.
[2017-01-21 09:33] VITALS: BP 133/68
[2017-01-21 12:04] VITALS: BP 147/70
--- NOTE | 2017-01-21 13:13 | NUR ---
YOANA RN, WOUND CARE NURSE TO CHANGE WOUND VAC, 2MG OF MORPHINE GIVEN AT THIS TIME FOR PAIN CONTROL. PT DENIES ANY NEEDS AT THIS TIME, FAMILY AT BEDSIDE, YOANA AT BEDSIDE TO DO WOUND VAC CHANGE. PT DENIES ANY NEEDS AT THIS TIME. CALL MESHA ROMERO, NAD NOTED, WILL CONTINUE TO MONITOR.
--- NOTE | 2017-01-21 13:30 | NUR ---
Wound care: Wound vac dressing changed on lower midline abdominal wound. Measurements are 5.5cm x 2cm x 0.5cm. Wound bed is 90% red and 10% hooper. There is no odor, tenderness, edema. No muscle, tendon or bone exposed. Wound edges are flat and intact. Small amount of serosanguinous drainage. Settings are -125mmhg moderate continuous. I used one piece of black sponge on the wound. Patient tolerated well.
[2017-01-21 16:15] VITALS: BP 122/56
--- NOTE | 2017-01-21 18:51 | NUR ---
1MG OF XANAX GIVEN PER PT REQUEST. PT DENIES ANY OTHER NEEDS AT THIS TIME. CALL LIGHT IN REACH, NAD NOTED, WILL CONTINUE TO MONITOR.
[2017-01-21 19:00] VITALS: BP 122/62
--- NOTE | 2017-01-21 19:30 | NUR ---
Received patient in bed awake and alert, reports she is feeling stronger and hoping to go home tomorrow. Abdominal wound vac on, transparent film dressing on abdomen over wound vac insertion site. Left chest port insitu with Heparin gtt infusing @ 8ml/hr. Next PTT is in the morning, last PTT was 77.0
[2017-01-22] VITALS: BP 120/62
[2017-01-22 04:00] VITALS: BP 129/76
--- NOTE | 2017-01-22 05:22 | NUR ---
Slept well, Heparin gtt continues to infuse @ 8ml/hr. Respirations easy and regular, wound vac on.
[2017-01-22 07:56] VITALS: BP 137/81
--- NOTE | 2017-01-22 08:04 | NUR ---
AM ROUNDS - PT APPEARS TO BE SLEEPING WITH EQUAL AND NON LABORED BREATHING. BED AT LOWEST POSITION. CALL PRASAD IN USE/REACH. SIDE RAILS UP X2. BSC AT BEDSIDE. LEFT CHEAST INFUSAPORT, HEPARIN AT 8CC/HR. ABDOMINAL WOUND VAC. PT ON ROOM AIR. WILL CONTINUE TO MONITOR
[2017-01-22 09:11] LABS: ALPHA FETOPROTEIN -(TUMOR MRK) 9.7 ng/mL (0.0-8.3)
[2017-01-22 10:12] LABS: HEPATITIS C ANTIBODY 9.9 (0.0-0.9)
[2017-01-22 11:41] VITALS: BP 124/70
--- NOTE | 2017-01-22 14:17 | NUR ---
PT IS AWAKE AND SITTING UP IN BED WITH FAMILY AT BEDSIDE. PT IS WAITING FOR D/C. NO NEEDS AT THIS TIME. WILL CONTINUE TO MONITOR
--- NOTE | 2017-01-22 15:48 | NUR ---
CALLED PHARMACY 2 TIMES FOR MEDICATION DO TO MED CART NOT HAVING IT IN STOCK. STILL WAITING ON MEDICATION (DELZICOL). WILL CONTINUE TO MONITOR
--- NOTE | 2017-01-22 15:56 | NUR ---
WOUND VAC HAS BEEN CHANGED OVER TO HOME WOUND VAV. WILL CONTINUE TO MONITOR
--- NOTE | 2017-01-22 16:22 | NUR ---
VLATE ENTRY PATIENT FOR DISCHARGE TO HOME TODAY W/ DAUGHTER, MABLE, PROVIDING TRANSPORTATION. HER DTR IS AT THE BEDSIDE. PATIENT'S OWN WOUND VAC AT THE BEDSIDE. SHE IS ON SERVICE W/ [facility]. 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 WILL FAX DISCHARGE ORDERS AND INSTRUCTIONS. PATIENT DENIES ANY ADDITIONAL NEEDS. HAS NO OTHER DME. NO STEPS TO ENTER HER HOME. PHARMACY- [facility] [address]. PCP - DR DOAN
[2017-01-22 16:26] VITALS: BP 123/65
--- NOTE | 2017-01-22 16:35 | NUR ---
PAST SALINE FLUSH TO 300 U HEPARIN FLUSH TO LEFT IP, AGUILAR NEEDLE REMOVED WITH STERILE TECHNIQUE. CLAEN 2 X 2 AND OPSITE PLACED.
--- NOTE | 2017-01-22 16:42 | NUR ---
HOSPITAL WOUND VAC PLACED IN YOANA'S, WOUND CARE NURSE, OFFICE.
--- NOTE | 2017-01-22 16:46 | NUR ---
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 WILL D/C
--- NOTE | 2017-01-22 16:49 | NUR ---
VERBAL AND WRITTEN D/C INSTRUCTIONS GIVEN TO PT AND FAMILY MEMBER. WILL D/C
--- NOTE | 2017-01-22 16:51 | NUR ---
FAXED D/C INSTRUCTIONS, DISCHARGE SUMMARY AND MED LIST TO [facility].
[2017-01-24 09:09] LABS: HCVGENO - HEP C QUANT HCV Not Detected IU/mL (())
[2017-01-24 21:07] LABS: PROTEIN S - FREE 51 % (57-157); PROTEIN S - FUNCTIONAL 44 % (63-140); PROTEIN S - TOTAL 74 % (60-150)
[2017-01-24 22:06] LABS: ACTIVATED PROTEIN C-RESISTANCE 2.8 ratio (2.0-3.5)
== END 2017-01-22 17:22 | disposition home health service (06) | DRG 300 ==
LOC: D.ER 11:07 → D.M2 15:32
PROVIDERS: Emergency Medicine; Internal Medicine Hematology & Oncology; ADMIT Family Medicine
DX: I82.402 Acute embolism and thrombosis of unspecified deep veins of left lower extremity (principal); K50.90 Crohn's disease, unspecified, without complications; I10 Essential (primary) hypertension; B19.20 Unspecified viral hepatitis C without hepatic coma; Z79.01 Long term (current) use of anticoagulants

== ENCOUNTER 2017-03-12 13:23 | Emergency (ER) | payer BC ==
[2017-01-20 13:22] VITALS: BMI 24.9
[~2017-03-12 13:23] MED LIST changes: +ASACOL HD800 MG PO
[2017-03-12 14:46] LABS: BASOPHILS 0.2 % (0-2); EOSINOPHILS 0.3 % (0-7); HEMATOCRIT 37.9 % (36.0-48.0); HEMOGLOBIN 12.4 g/dL (12-16); IMMATURE GRANULOCYTES 0.2 % (0-5); LYMPHOCYTES 22.1 % (15-50); MCH 31.2 pg (26.0-34.0); MCHC 32.7 g/dL (31.0-37.0); MCV 95.2 fL (80.0-100.0); MEAN PLATELET VOLUME 8.7 fL (7.4-10.4); MONOCYTES 6.6 % (2-11); NEUTROPHILS 70.6 % (40-80); PLATELET COUNT 256 10x3/uL (130-400); RBC 3.98 10x6/uL (4.00-5.40); RDW 14.7 % (11.5-14.5); WBC 12.1 10x3/uL (4.8-10.8)
[2017-03-12 14:59] LABS: BILIRUBIN - TOTAL 0.34 mg/dL (0.2-1.3); CALCIUM 9.3 mg/dL (8.5-10.1); CARBON DIOXIDE 20.7 mmol/L (21.0-32.0); CREATININE - SERUM 1.1 mg/dL (0.6-1.3); POTASSIUM - SERUM 3.7 mmol/L (3.5-5.1); PROTEIN - SERUM 7.6 g/dL (6.4-8.2)
[2017-03-18] MEDS ORDERED: CEFUROXIME250 MG PO (13:52)
[2017-03-18] MEDS ORDERED: CLARITIN 10 MG10 MG PO (13:53)
[2017-03-18] MEDS ORDERED: ASACOL HD800 MG PO (13:54)
== END 2017-03-12 16:04 | disposition home or self-care (01) ==
LOC: D.ER 13:23
PROVIDERS: Nurse Practitioner Family
DX: L03.313 Cellulitis of chest wall (principal); Z87.19 Personal history of other diseases of the digestive system

== ENCOUNTER 2017-03-21 08:10 | Day surgery (SDC) | payer BC ==
[2017-03-18 14:41] LABS: HEMATOCRIT 38.7 % (36.0-48.0); HEMOGLOBIN 12.7 g/dL (12-16); MCH 31.5 pg (26.0-34.0); MCHC 32.8 g/dL (31.0-37.0); MEAN PLATELET VOLUME 9.2 fL (7.4-10.4); RBC 4.03 10x6/uL (4.00-5.40); RDW 14.3 % (11.5-14.5); WBC 9.8 10x3/uL (4.8-10.8)
[~2017-03-21 08:10] MED LIST changes: +CEFUROXIME250 MG PO; +CLARITIN 10 MG10 MG PO
[2017-03-21 09:26] VITALS: BP 133/71; BMI 24.7
--- NOTE | 2017-03-21 14:05 | NUR ---
D/C INSTRUCTIONS EXPLAINED TO PT. VOICED UNDERSTANDING. COPIES OF ALL GIVEN TO PT.
--- NOTE | 2017-03-21 14:10 | NUR ---
D/C'D HOME VIA W/C TO PRIVATE CAR.
--- NOTE | 2017-03-21 14:50 | OP ---
PATIENT NAME: DUNG CARVAJAL MEDICAL RECORD: [id number] :41 LOCATION:D.OPS ADMISSION DATE: SURGEON: WOODROW BOOGIE MD DATE OF OPERATION: 03/21/2017 SURGEON: Woodrow Boogie MD PREOPERATIVE DIAGNOSES: 1. Crohn disease. 2. History of multiple DVTs. 3. Peripheral IV access insufficiency. 4. Port site pain. POSTOPERATIVE DIAGNOSES: 1. Crohn disease. 2. History of multiple DVTs. 3. Peripheral IV access insufficiency. 4. Port site pain. PROCEDURE PERFORMED: Removal of tunneled left subclavian PowerPort. ANESTHESIA: Total intravenous anesthesia. COMPLICATIONS: None. SPECIMENS: Port case was contaminated. ESTIMATED BLOOD LOSS: 10 cc. OPERATIVE COURSE: After consent was obtained, the patient was taken to the operating room and placed in supine position on the operating table. Next, total intravenous anesthesia was given. Timeout was taken to confirm the correct patient and procedure. The left chest was prepped and draped in typical sterile fashion. A 20 of local anesthetic were injected. Previous incision was opened using a 15-blade scalpel. Dissection continued to the level of the port using electrocautery. The port was circumferentially dissected. The previous Prolene sutures were transected with Metzenbaum scissors. The port was grasped and removed in its entirety with the catheter tip intact and sent for permanent pathology. The wound was then irrigated and suctioned. Fascia was closed with 3-0 Vicryl suture. The skin was closed with 4-0 Stratafix, Mastisol and Steri-Strips. At the end of the case, all needle and instrument counts were correct. No complications occurred. The patient was transferred to the recovery room in satisfactory condition. TRANSINT:[id number] Voice Confirmation ID: [id number] DOCUMENT ID: [id number] WOODROW BOOGIE MD at 1450 CC: [id number] DICTATION DATE: 03/21/17 1246 BACK SHOE WORKER: 03/21/[address] [facility] 03/21/17 [facility] [address] [place] [address]
== END 2017-03-21 14:20 | disposition home or self-care (01) ==
LOC: D.OPS 08:10 → D.PAN 10:30 → D.OPS 11:00
PROVIDERS: Anesthesiology
DX: R09.89 Other specified symptoms and signs involving the circulatory and respiratory systems (principal); K55.059 Acute (reversible) ischemia of intestine, part and extent unspecified; I82.409 Acute embolism and thrombosis of unspecified deep veins of unspecified lower extremity; K50.90 Crohn's disease, unspecified, without complications; I10 Essential (primary) hypertension; Z01.812 Encounter for preprocedural laboratory examination

== ENCOUNTER → 2017-09-22 11:15 | Outpatient (CLI) | payer BC | END | disposition home or self-care (01) | LOC: D.US 11:15 | DX: I82.512 Chronic embolism and thrombosis of left femoral vein (principal) ==

== ENCOUNTER 2017-11-24 14:41 | Emergency (ER) | payer MEDICARE, BC ==
[~2017-11-24] VITALS: Ht 162.6 cm; Wt 67.7 kg
[2017-11-24 14:54] VITALS: Ht 162.6 cm; Wt 67.7 kg
[2017-11-24 18:00] VITALS: BP 156/86
== END 2017-11-24 18:15 | disposition home or self-care (01) ==
LOC: D.ER 14:41
DX: R51 Headache (principal); M62.81 Muscle weakness (generalized); I10 Essential (primary) hypertension; K50.90 Crohn's disease, unspecified, without complications

== ENCOUNTER 2018-07-12 19:03 | Emergency (ER) | payer BC, MEDICARE ==
[~2018-07-12] VITALS: Ht 162.6 cm; Wt 73.6 kg
[2018-07-12 19:07] VITALS: Ht 162.6 cm; Wt 73.6 kg
[2018-07-12] MEDS ORDERED: LOPRESSOR25 MG PO (19:09)
[2018-07-12 21:13] LABS: BASOPHILS 0.2 % (0-2); EOSINOPHILS 1.9 % (0-7); HEMATOCRIT 36.7 % (36.0-48.0); HEMOGLOBIN 12.3 g/dL (12-16); IMMATURE GRANULOCYTES 0.1 % (0-5); LYMPHOCYTES 25.3 % (15-50); MCH 31.9 pg (26.0-34.0); MCHC 33.5 g/dL (31.0-37.0); MCV 95.3 fL (80.0-100.0); MONOCYTES 7.5 % (2-11); PLATELET COUNT 329 10x3/uL (130-400); RBC 3.85 10x6/uL (4.00-5.40); RDW 12.8 % (11.5-14.5); WBC 9.3 10x3/uL (4.8-10.8)
[2018-07-12 21:30] LABS: APTT 31.5 SECONDS (22.8-39.4); INR 1.18 (0.85-1.17); PROTIME 14.5 SECONDS (11.6-15.0)
[2018-07-12 21:34] LABS: ALKALINE PHOSPHATASE 124 U/L (46-116); ALT (SGPT) 25 U/L (10-68); BILIRUBIN - TOTAL 0.23 mg/dL (0.2-1.3); CALC OSMOLALITY 282 mosm/kg (275-300); CALCIUM 8.6 mg/dL (8.5-10.1); CARBON DIOXIDE 24.6 mmol/L (21.0-32.0); CHLORIDE - SERUM 107 mmol/L (98-107); CREATININE - SERUM 1.2 mg/dL (0.6-1.3); GLUCOSE 112 mg/dL (74-106); POTASSIUM - SERUM 3.4 mmol/L (3.5-5.1); PROTEIN - SERUM 7.4 g/dL (6.4-8.2); SODIUM 141 mmol/L (136-145); UREA NITROGEN 14 mg/dL (7-18); eGFR NON AFRICAN AMERICAN 46 mL/min (90-120)
[2018-07-12 21:50] LABS: CKMB 0.5 U/L (0.0-3.6); CREATINE KINASE 40 UL (21-215); MAGNESIUM - SERUM 2.1 mg/dL (1.8-2.4); TROPONIN-I < 0.017 ng/mL (0.000-0.060)
[2018-07-12 23:06] VITALS: BP 138/70
== END 2018-07-12 23:06 | disposition home or self-care (01) ==
LOC: D.ER 19:03
PROVIDERS: Family Medicine
DX: I10 Essential (primary) hypertension (principal); K50.90 Crohn's disease, unspecified, without complications

== ENCOUNTER → 2018-09-04 10:32 | Outpatient (CLI) | payer BC ==
[2018-07-12 19:07] VITALS: BMI 27.8
[~2018-09-04 10:32] MED LIST changes: +LOPRESSOR25 MG PO
== END | disposition home or self-care (01) ==
LOC: D.US 10:32
PROVIDERS: ATTEND Internal Medicine Hematology & Oncology
DX: I82.512 Chronic embolism and thrombosis of left femoral vein (principal)

== ENCOUNTER → 2020-09-08 07:58 | Outpatient (CLI) | payer BC ==
[2020-04-21 13:21] VITALS: BMI 29.2
[~2020-09-08 07:58] MED LIST changes: +HYDRALAZINE HC100 MG PO; +LEVOFLOXACIN500 MG PO
== END | disposition home or self-care (01) ==
LOC: D.US 07:58
PROVIDERS: ATTEND Internal Medicine Hematology & Oncology
DX: I82.512 Chronic embolism and thrombosis of left femoral vein (principal)

== ENCOUNTER → 2020-11-19 09:33 | Outpatient (CLI) | payer BC ==
[2020-04-21 13:21] VITALS: BMI 29.2
== END | disposition home or self-care (01) ==
LOC: D.MRI 09:33
PROVIDERS: ATTEND Clinical Nurse Specialist Family Health
DX: M79.641 Pain in right hand (principal)